=== PATIENT | female | born 1945 | race Caucasian/White ===

== ENCOUNTER → 2016-11-26 | Outpatient (CLI) | payer OTHER, BC ==
[~2016-11-26] VITALS: Ht 154.9 cm; Wt 74.4 kg
[~2016-11-26] MED LIST: AMITRIPTYLINE H10 M1 PO; AMITRIPTYLINE H25 M2 PO; AMOXICILLIN 50500 M1 PO; ATIVAN0.5 MG PO; AUGMENTIN 875875 MG PO; BACTRIM; BENADRYL25 MG PO; BENTYL20 MG PO; CALCIUM 500 +1 EAC5 PO; CALCIUM PO; CIPRO500 MG PO; CRANBERRY400 MG PO; DOLOPHINE HCL10 MG PO; ELAVIL PO; FIBER1 GM PO; FIORICET PO; FISH OIL 1,0001 EAC7 PO; FISHOIL; GEMFIBROZIL 60600 MG PO; HAIR, SKIN & N1 EAC3 PO; HYDROCODON-ACE1 EAC7 PO; HYDROCODONE-AP1 EAC6 PO; IRON325 PO; LIBRAX PO; LIPITOR40 MG PO; METHADONE HCL 110 M1 PO; METHADOSE10 M1 PO; MUCINEX TA600 MG/TA2 PO; MULTIVITAMINS PO; NORCO 5-325 TA1 EACH PO; NORVASC10 MG PO; NULEV0.125 MG PO; OSTEO BI-FLEX1 EAC1 PO; PARAFON FORTE500 MG PO; PREVACID 30MG C30 M1 PO; PREVACID30 MG PO; PROZAC 10 MG CA10 M1 PO; PROZAC 10 MG CA10 MG PO; SIMETHICON CHEW80 M1 PO; SLOW FE 160MG160 MG PO; SUMYCIN 250250 MG PO; VITAMIN D1000 UNI1 PO
--- NOTE | ~2016-11-26 | HPC ---
[facility] [place] [place] [address] [address] PAIN MANAGEMENT CONSULTATION Name: CONSTANTIN TYLER Room #: REG [facility] Kane#: [id number] Admission: 11/26/16 Attend Phys: Tova Villalpando MD Discharge: Date of : 49 Report #: [id number] THIS REPORT FOR: //name// CC: DILEEP Degroot DATE OF SERVICE: 11/26/2016 DATE OF SERVICE: 11/26/2016 FOLLOWUP COMPLAINT: "My pain on the left side still hurts." The medicine continues to be helpful. 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 I had surgery on it, may remove the part of it. They are not sure what the etiology of the cancer is. They cannot remove it all. Otherwise, it will damage my fascial nerve. I am going to have surgery on the December 17 to have some more of this cancer removed. Hopefully, they will have more information on how to treat it. The dentist has placed the number of implants in my mouth. We are not sure how to proceed because if I have to go with radiation that would might be a problem with healing. I have to see what happens. PHYSICAL EXAMINATION: Blood pressure 164/93, pulse 86, respiratory rate 16, room air saturation 97%. The patient has pain and discomfort involving the left side. Status post nephrectomy. IMPRESSION: 1. Chronic left flank pain status post nephrectomy, which responds to opioids. 2. Tooth extractions and dental implants - still in progress over the last which has been going on for the last year. 3. 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 RECOMMENDATIONS: We will continue with the patient's current medical regimen of methadone 10 mg 1 p.o. t.i.d. and hydrocodone 5/325, Elavil 25 mg at bedtime. She will call us if she has any problems with her medications. We would like to thank you for letting us participate in her care. We hope she continues to improve. <ELECTRONICALLY SIGNED> By: Tova Villalpando MD 12/21/16 1018 [id number] Tova Villalpando MD /nt
[2016-11-26 10:09] VITALS: BP 164/93
== END ==
LOC: PAIN 07:06
DX: G89.28 Other chronic postprocedural pain (principal); Z90.5 Acquired absence of kidney; C44.209 Unspecified malignant neoplasm of skin of left ear and external auricular canal; Z77.123 Contact with and (suspected) exposure to radon and other naturally occurring radiation; I10 Essential (primary) hypertension

== ENCOUNTER → 2017-03-02 | Outpatient (CLI) | payer OTHER, BC ==
[~2017-03-02] VITALS: Ht 154.9 cm; Wt 74.2 kg
--- NOTE | ~2017-03-02 | HPC ---
[facility] [place] [address] PAIN MANAGEMENT CONSULTATION Name: CONSTANTIN TYLER [id number] Admission: 03/02/17 Attend Phys: Tova Villalpando MD Discharge: Date of : 47 Report #: [id number] THIS REPORT FOR: //name// CC: Bianca Mcrae MD DATE OF SERVICE: 03/02/2017 FOLLOWUP COMPLAINT: "I had my surgery again." FOLLOWUP HISTORY: The patient is a 71-year-old female who has been seen in the pain clinic because of chronic left flank pain. She finds that her pain continues to be helped with use of her current medical regimen. She also is recovering from surgery. She had surgery on a cancer, which is benign, but continues to reoccur behind her left ear. She states that she will not need radiation. She is planning on continuing with dental implant surgery. PHYSICAL EXAMINATION: Blood pressure 135/72, pulse 90, respiratory rate 18, and room air saturation 96%. The patient's height 5 feet 1 inch, weight 74 kg, BMI is 30. She has not fallen since we saw her last. IMPRESSION: 1. Recent left ear surgery for recurrent tumor formation. 2. Chronic left flank pain, status post nephrectomy continues to respond to opioids. 3. Tooth extraction and dental implants. We will not have to undergo radiation. She is going to pursue completion of her dental implants and dentures. RECOMMENDATIONS: A script for the patient's methadone 1 p.o. t.i.d. and hydrocodone 5/325 with Elavil 25 mg at bedtime has been rewritten. She will call us if she has any problems. We would like to thank you for letting us participate in her care. We hope she continues to improve. By: [id number] Tova Villalpando MD /nt
[2017-03-02 11:07] VITALS: BP 135/72
== END ==
LOC: PAIN 06:57
DX: R10.9 Unspecified abdominal pain (principal); Z90.5 Acquired absence of kidney; I10 Essential (primary) hypertension; F32.9 Major depressive disorder, single episode, unspecified

== ENCOUNTER → 2017-06-03 | Outpatient (CLI) | payer OTHER, BC ==
[~2017-06-03] VITALS: Ht 154.9 cm; Wt 68.2 kg
--- NOTE | ~2017-06-03 | HPC ---
[facility] [place] [address] PAIN MANAGEMENT CONSULTATION Name: CONSTANTIN TYLER Room #: REG PAUL Kane#: [id number] Admission: 06/03/17 Attend Phys: Tova Villalpando MD Discharge: Date of : 47 Report #: [id number] THIS REPORT FOR: //name// CC: Bianca Mcrae MD DATE OF SERVICE: 06/03/2017 FOLLOWUP COMPLAINT: Here for medications. FOLLOWUP HISTORY: The patient is a 71-year-old female who has been followed in the pain clinic. As you recall, she has had surgery in the past. She continues to have flank pain, which is quite problematic. She finds that her current medical regimen of methadone and hydrocodone are quite helpful. She states that she keeps her medications in a guarded area. She would like to continue with her medications. She has had some problems with urinary tract infection. 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 She would like to have her medications renewed. PHYSICAL EXAMINATION: The patient is alert. She appears to be taken the medication as prescribed. There are no obvious complications. She rates her pain as a 3/10 today. She continues to have the pain on the left flank area. This is in the post nephrectomy area. She does feel a little better since the UTIs have been helped, but still that there might still be some residual problems at this juncture. She will continue to follow up with her physician in that regard. Blood pressure 136/75, pulse 83, respiratory rate 16, room air saturation is 98%, height 153 cm, weight 68 kg, and BMI 28. The patient has not fallen since we saw her last. IMPRESSION: 1. Chronic left flank pain, status post nephrectomy, continues to find opioids helpful to enable her to engage in activities of daily living. 2. Tooth extraction and dental surgery on hold secondary to history of urinary tract infections, which the patient feels still might be somewhat lingering. 3. History of left ear surgeries with recurrent tumor. The patient feels that this may be stable and continues to follow with her physician. RECOMMENDATION: She will call us if she has any problems with her medications. Her prescriptions for Elavil, methadone, and hydrocodone are rewritten. By: [id number] Tova Villalpando MD /nt
[2017-06-03 09:43] VITALS: BP 136/75
== END | disposition home or self-care (01) ==
LOC: PAIN 06-01 07:20
DX: R10.9 Unspecified abdominal pain (principal); Z90.5 Acquired absence of kidney; Z98.890 Other specified postprocedural states

== ENCOUNTER 2017-11-29 13:53 | Inpatient (IN) | payer OTHER, BC ==
[~2017-11-29] VITALS: Ht 157.5 cm; Wt 67.1 kg
--- NOTE | ~2017-11-29 | EKG ---
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 : 1945 Requested By: Tori Guerrero Order Number: [id number] MD: Hung Wing Measurements Intervals [place] Rate: 86 P: 48 MO: 159 QRS: 6 QRSD: 87 T: -21 QT: 467 QTc: 559 Interpretive Statements Sinus rhythm RSR' in V1 or V2, probably normal variant Inferior infarct, old Nonspecific ST segment abnormality Compared to ECG 05/02/2015 06:38:[address] segment abnormality is now present Electronically Signed On 11-29-2017 17:39:42 PROCESS PLANNER by Hung Wing [email or web address] <ELECTRONICALLY SIGNED> By: Hung Wing MD, [facility] 11/29/17 1739 1438 1438 Hung Wing MD, [facility] /EPI
--- NOTE | ~2017-11-29 | EKG ---
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: : 1945 Requested By: Peter Acosta Order Number: [id number] MD: Hung Wing Measurements Intervals [place] Rate: 78 P: -5 [place]: 139 QRS: 19 QRSD: 84 T: 20 QT: 370 QTc: 422 Interpretive Statements Sinus rhythm RSR' in V1 or V2, probably normal variant Borderline T abnormalities, diffuse leads Compared to ECG 11/29/2017 14:38:49 No significant change was found Electronically Signed On 12-01-2017 8:07:10 UNDERGROUND DISTRIBUTION ENGINEER by Hung Wing [email or web address] <ELECTRONICALLY SIGNED> By: Hung Wing MD, [facility] 12/01/17 0807 0645 0645 Hung Wing MD, [facility] /EPI
[2017-11-29 13:54] VITALS: BP 156/75
[2017-11-29 14:24] LABS: HEMATOCRIT 32.8 % (37.0-47.0); HEMOGLOBIN 10.5 gm/dL (12.0-15.0); MCH 24.5 pg (26.0-34.0); MCV 76.6 fL (80.0-100.0); PLATELET COUNT 331 thou/uL (150-400); RBC 4.28 mil/uL (4.20-5.00); RDW 16.5 % (10.5-14.5); WBC 17.8 thou/uL (4.0-11.0)
[2017-11-29 14:26] LABS: CALCIUM 10.3 mg/dL (8.5-10.1); CREATININE 1.4 mg/dL (0.6-1.0)
[2017-11-29 14:27] LABS: URINE BLOOD 3+ (Negative); URINE CLARITY CLEAR; URINE COLOR YELLOW; URINE GLUCOSE-RANDOM* NEGATIVE (Negative); URINE KETONES 3+ (Negative); URINE LEUKOCYTES TRACE (Negative); URINE NITRITE NEGATIVE (Negative); URINE PROTEIN (DIPSTICK) 2+ (Negative); URINE UROBILINOGEN 0.2 E.U./dl (0.2-1.0)
[2017-11-29 14:31] LABS: ICTOTEST (BILI CONFIRMATORY) Negative (Negative); URINE BILIRUBIN NEGATIVE (Negative)
[2017-11-29 14:35] LABS: POTASSIUM 2.3 mmol/L (3.5-5.1)
[2017-11-29 14:41] LABS: CASTS None Seen /LPF (None Seen); MUCUS 0-3 Light strn/LPF (None Seen); SQUAMOUS 0-3 Few /LPF (0-3)
[2017-11-29 14:42] LABS: AMORPHOUS URATES Moderate /LPF (None Seen); URINE RBC 3-10 Few /HPF (0-2)
[2017-11-29 15:00] LABS: ABSOLUTE NEUTROPHILS 15.5 thou/uL (1.4-8.2); ANISOCYTOSIS 1+
[2017-11-29 15:01] LABS: MICROCYTES SLIGHT; POLYCHROMASIA SLIGHT
[2017-11-29 15:55] LABS: BE(vivo) -11.6 mmol/L (-2 to +3); HCO3 11.3 mmol/L (22.0-26.0); PO2 96.7 mmHg (80.0-100.0); pH 7.431 (7.360-7.450); sO2 97.7 % (92.0-98.0)
[2017-11-29 15:56] LABS: PCO2 17.4 mmHg (35.0-45.0)
[2017-11-29 16:49] VITALS: BP 156/75
[2017-11-29 18:42] LABS: AMP/METHAMP Negative (Negative); BARBITURATES POSITIVE (Negative); BENZODIAZEPINES Negative (Negative); COCAINE Negative (Negative); METHADONE POSITIVE (Negative); OPIATES POSITIVE (Negative); PCP Negative (Negative)
[2017-11-29 19:08] LABS: TSH 0.19 uIU/mL (0.358-3.740)
[2017-11-29 20:16] VITALS: BP 173/68
[2017-11-29 20:38] VITALS: BP 175/82
[2017-11-29 23:48] VITALS: BP 140/72
[2017-11-30 03:10] VITALS: BP 159/70
[2017-11-30 04:48] LABS: BASOPHILS 0.3 % (0.0-2.0); HEMATOCRIT 27.4 % (37.0-47.0); HEMOGLOBIN 8.9 gm/dL (12.0-15.0); LYMPHOCYTES 6.2 % (24.0-44.0); MCH 24.8 pg (26.0-34.0); MCHC 32.4 g/dL (28.0-37.0); MCV 76.5 fL (80.0-100.0); MONOCYTES 9.5 % (1.0-8.0); PLATELET COUNT 274 thou/uL (150-400); RBC 3.58 mil/uL (4.20-5.00); RDW 16.8 % (10.5-14.5); WBC 15.5 thou/uL (4.0-11.0)
[2017-11-30 05:01] LABS: CALCIUM 9.5 mg/dL (8.5-10.1); CREATININE 1.1 mg/dL (0.6-1.0); MAGNESIUM 1.9 mg/dL (1.8-2.4)
[2017-11-30 05:14] LABS: POTASSIUM 2.6 mmol/L (3.5-5.1)
[2017-11-30 08:42] VITALS: BP 157/65
[2017-11-30 08:43] VITALS: BP 157/65
[2017-11-30] MEDS ORDERED: CHLORZOXAZONE500 MG PO (09:58)
[2017-11-30] MEDS ORDERED: LIBRAX PO (09:59)
[2017-11-30 17:13] VITALS: BP 101/61
[2017-11-30 20:13] VITALS: BP 153/65
[2017-12-01 03:19] VITALS: BP 130/83
[2017-12-01 03:57] LABS: HEMATOCRIT 25.2 % (37.0-47.0); HEMOGLOBIN 8.5 gm/dL (12.0-15.0); MCH 25.3 pg (26.0-34.0); MCHC 33.7 g/dL (28.0-37.0); MCV 75.1 fL (80.0-100.0); RBC 3.35 mil/uL (4.20-5.00); RDW 16.4 % (10.5-14.5); WBC 8.9 thou/uL (4.0-11.0)
[2017-12-01 04:11] LABS: CALCIUM 8.6 mg/dL (8.5-10.1); CREATININE 0.8 mg/dL (0.6-1.0)
[2017-12-01 04:23] LABS: POTASSIUM 2.7 mmol/L (3.5-5.1)
[2017-12-01 04:47] VITALS: BP 170/79
[2017-12-01 08:34] VITALS: BP 183/76
[2017-12-01 11:39] LABS: ALBUMIN 2.4 g/dL (3.4-5.0); CALCIUM 8.9 mg/dL (8.5-10.1); POTASSIUM 3.2 mmol/L (3.5-5.1); TOTAL BILIRUBIN 0.1 mg/dL (<0.1-1.0); TOTAL PROTEIN 6.6 g/dL (6.4-8.2)
[2017-12-01 16:34] VITALS: BP 165/81
[2017-12-01 19:27] VITALS: BP 159/77
[2017-12-02] VITALS (7 sets, daily range): BP systolic 144–183; BP diastolic 64–87
[2017-12-02 07:13] LABS: HEMATOCRIT 25.9 % (37.0-47.0); HEMOGLOBIN 8.7 gm/dL (12.0-15.0); MCH 25.3 pg (26.0-34.0); MCHC 33.4 g/dL (28.0-37.0); MCV 75.5 fL (80.0-100.0); RBC 3.43 mil/uL (4.20-5.00); RDW 16.7 % (10.5-14.5); WBC 8.8 thou/uL (4.0-11.0)
[2017-12-02 07:21] LABS: CALCIUM 8.7 mg/dL (8.5-10.1); CREATININE 0.7 mg/dL (0.6-1.0); POTASSIUM 3.5 mmol/L (3.5-5.1)
[2017-12-03 03:25] VITALS: BP 144/52
[2017-12-03 03:52] LABS: HEMATOCRIT 26.1 % (37.0-47.0); HEMOGLOBIN 8.4 gm/dL (12.0-15.0); MCH 24.4 pg (26.0-34.0); MCHC 32.1 g/dL (28.0-37.0); MCV 76.1 fL (80.0-100.0); RBC 3.43 mil/uL (4.20-5.00); RDW 16.6 % (10.5-14.5); WBC 11.8 thou/uL (4.0-11.0)
[2017-12-03 03:56] LABS: CALCIUM 8.5 mg/dL (8.5-10.1); CREATININE 0.8 mg/dL (0.6-1.0)
[2017-12-03 04:01] LABS: POTASSIUM 2.7 mmol/L (3.5-5.1)
[2017-12-03 08:00] VITALS: BP 155/65
[2017-12-03 17:31] VITALS: BP 146/66
[2017-12-03 19:31] VITALS: BP 171/82
[2017-12-04 00:29] LABS: MAGNESIUM 1.9 mg/dL (1.8-2.4); POTASSIUM 3.2 mmol/L (3.5-5.1)
[2017-12-04 04:56] VITALS: BP 176/78
[2017-12-04 05:47] VITALS: BP 151/69
[2017-12-04 07:14] LABS: CALCIUM 8.8 mg/dL (8.5-10.1); CREATININE 0.7 mg/dL (0.6-1.0); POTASSIUM 3.7 mmol/L (3.5-5.1)
[2017-12-04 08:23] VITALS: BP 167/63
[2017-12-04] MEDS ORDERED: LISINOPRIL10 MG PO (15:08)
[2017-12-04] MEDS ORDERED: KEFLEX500 M1 PO (15:09)
[2017-12-04 15:46] VITALS: BP 152/67
[2017-12-04 15:59] VITALS: BP 152/62
[2018-05-05] MEDS ORDERED: LISINOPRIL10 MG PO (13:49)
[2018-05-05] MEDS ORDERED: CALCIUM 500 +1 EAC5 PO (13:50)
[2018-05-05] MEDS ORDERED: AMOXICILLIN 50500 M1 PO (13:52)
== END 2017-12-04 17:13 | disposition home health service (06) | DRG 871 ==
LOC: ER 13:53 → 4S 14:52 → EROBS 14:52 → 4S 20:23 → 4N 12-04 05:21
PROVIDERS: Emergency Medicine; Hospitalist; Internal Medicine; Nurse Practitioner; Nurse Practitioner Family
DX: A41.9 Sepsis, unspecified organism (principal); G92 Toxic encephalopathy; N17.9 Acute kidney failure, unspecified; N39.0 Urinary tract infection, site not specified; Z66 Do not resuscitate; I10 Essential (primary) hypertension; E78.00 Pure hypercholesterolemia, unspecified; K21.9 Gastro-esophageal reflux disease without esophagitis; E87.6 Hypokalemia; G89.29 Other chronic pain; Z80.9 Family history of malignant neoplasm, unspecified; E78.5 Hyperlipidemia, unspecified; B96.1 Klebsiella pneumoniae [K. pneumoniae] as the cause of diseases classified elsewhere; T40.605A Adverse effect of unspecified narcotics, initial encounter; Y92.89 Other specified places as the place of occurrence of the external cause; Z79.899 Other long term (current) drug therapy; Z88.8 Allergy status to other drugs, medicaments and biological substances; Z90.710 Acquired absence of both cervix and uterus; Z90.49 Acquired absence of other specified parts of digestive tract; Z82.49 Family history of ischemic heart disease and other diseases of the circulatory system; Z85.3 Personal history of malignant neoplasm of breast; Z28.21 Immunization not carried out because of patient refusal
CPT/HCPCS: 10100

== ENCOUNTER 2018-01-22 15:44 | Inpatient (IN) | payer OTHER, BC ==
[~2018-01-22] VITALS: Ht 154.9 cm; Wt 65.8 kg
[~2018-01-22 15:44] MED LIST changes: +CHLORZOXAZONE500 MG PO; +KEFLEX500 M1 PO; +LISINOPRIL10 MG PO
[2018-01-22 15:45] VITALS: BP 143/108
[2018-01-22 16:26] LABS: ABSOLUTE NEUTROPHILS 8.7 thou/uL (1.4-8.2); EOSINOPHILS 0.2 % (0.0-3.0); HEMOGLOBIN 8.5 gm/dL (12.0-15.0); LYMPHOCYTES 11.2 % (24.0-44.0); MCH 23.1 pg (26.0-34.0); MCHC 31.5 g/dL (28.0-37.0); MCV 73.4 fL (80.0-100.0); MONOCYTES 4.9 % (1.0-8.0); PLATELET COUNT 375 thou/uL (150-400); POLYS 82.7 % (36.0-66.0); RBC 3.67 mil/uL (4.20-5.00); RDW 17.9 % (10.5-14.5); WBC 10.5 thou/uL (4.0-11.0)
[2018-01-22 16:39] LABS: CALCIUM 9.4 mg/dL (8.5-10.1)
[2018-01-22 16:45] LABS: ALBUMIN 3.6 g/dL (3.4-5.0); TOTAL BILIRUBIN 0.2 mg/dL (<0.1-1.0); TOTAL PROTEIN 7.1 g/dL (6.4-8.2)
[2018-01-22 16:50] LABS: ANISOCYTOSIS 1+; HYPOCHROMASIA 1+; MICROCYTES 1+
[2018-01-22 17:05] LABS: URINE BILIRUBIN NEGATIVE (Negative); URINE BLOOD NEGATIVE (Negative); URINE CLARITY CLEAR; URINE COLOR YELLOW; URINE GLUCOSE-RANDOM* NEGATIVE (Negative); URINE KETONES NEGATIVE (Negative); URINE LEUKOCYTES-REFLEX NEGATIVE (Negative); URINE NITRITE-REFLEX NEGATIVE (Negative); URINE PROTEIN (DIPSTICK) NEGATIVE (Negative); URINE SPECIFIC GRAVITY 1.015 (1.005-1.035); URINE UROBILINOGEN 0.2 E.U./dl (0.2-1.0)
[2018-01-22] MEDS ORDERED: AMITRIPTYLINE H25 M2 PO (18:10)
[2018-01-22 18:17] VITALS: BP 111/59
[2018-01-22 18:54] VITALS: BP 146/71
[2018-01-22 19:38] VITALS: BP 123/89
[2018-01-22 20:00] LABS: HEMATOCRIT 26.8 % (37.0-47.0); HEMOGLOBIN 8.3 gm/dL (12.0-15.0)
[2018-01-23] VITALS (7 sets, daily range): BP systolic 126–171; BP diastolic 62–81
[2018-01-23 00:33] LABS: HEMATOCRIT 26.5 % (37.0-47.0); HEMOGLOBIN 8.3 gm/dL (12.0-15.0)
[2018-01-23 07:25] LABS: HEMATOCRIT 22.6 % (37.0-47.0); HEMOGLOBIN 7.1 gm/dL (12.0-15.0); MCH 22.9 pg (26.0-34.0); MCHC 31.3 g/dL (28.0-37.0); MCV 73.3 fL (80.0-100.0); RBC 3.08 mil/uL (4.20-5.00); RDW 18.2 % (10.5-14.5); WBC 10.6 thou/uL (4.0-11.0)
[2018-01-23 07:33] LABS: CALCIUM 8.6 mg/dL (8.5-10.1); CREATININE 0.9 mg/dL (0.6-1.0); POTASSIUM 3.6 mmol/L (3.5-5.1)
[2018-01-23 13:07] LABS: HEMOGLOBIN 6.8 gm/dL (12.0-15.0)
[2018-01-23 13:09] LABS: HEMATOCRIT 21.6 % (37.0-47.0)
[2018-01-23 20:19] LABS: HEMATOCRIT 27.7 % (37.0-47.0); HEMOGLOBIN 8.7 gm/dL (12.0-15.0)
[2018-01-24 01:24] LABS: HEMATOCRIT 24.8 % (37.0-47.0)
[2018-01-24 03:18] VITALS: BP 163/73
[2018-01-24 07:10] LABS: HEMATOCRIT 23.4 % (37.0-47.0); HEMOGLOBIN 7.6 gm/dL (12.0-15.0)
[2018-01-24 08:00] VITALS: BP 157/57
[2018-01-24 13:34] LABS: HEMATOCRIT 24.6 % (37.0-47.0); HEMOGLOBIN 8.1 gm/dL (12.0-15.0)
[2018-01-24 16:00] VITALS: BP 136/67
[2018-01-24 18:41] LABS: HEMATOCRIT 24.6 % (37.0-47.0); HEMOGLOBIN 7.8 gm/dL (12.0-15.0)
[2018-01-24 20:22] VITALS: BP 155/79
[2018-01-25 00:26] LABS: HEMATOCRIT 23.3 % (37.0-47.0); HEMOGLOBIN 7.4 gm/dL (12.0-15.0)
[2018-01-25 03:31] VITALS: BP 144/71
[2018-01-25 08:00] VITALS: BP 158/74
[2018-01-25 11:44] VITALS: BP 146/92; BP 148/72
[2018-01-25 15:49] VITALS: BP 148/72
[2018-01-25 17:21] LABS: HEMATOCRIT 29.6 % (37.0-47.0)
[2018-01-25 17:22] LABS: HEMOGLOBIN 9.6 gm/dL (12.0-15.0)
[2018-01-25 19:08] VITALS: BP 142/60
[2018-01-26 03:55] VITALS: BP 159/86
[2018-01-26 05:52] LABS: HEMATOCRIT 27.8 % (37.0-47.0); HEMOGLOBIN 9.2 gm/dL (12.0-15.0); MCH 25.5 pg (26.0-34.0); MCV 77.2 fL (80.0-100.0); RBC 3.59 mil/uL (4.20-5.00); RDW 19.1 % (10.5-14.5); WBC 7.4 thou/uL (4.0-11.0)
[2018-01-26 08:30] VITALS: BP 172/79
[2018-01-26] MEDS ORDERED: CARAFATE 11 GM/10 M1 PO (09:50)
[2018-01-26 16:14] VITALS: BP 151/67
[2018-01-26 21:41] VITALS: BP 156/86
[2018-01-27 03:45] VITALS: BP 155/77
[2018-01-27 05:32] LABS: % SATURATION 7 % (20-39); IRON 27 ug/dL (50-170); TIBC 392 ug/dL (250-450)
[2018-01-27 05:33] LABS: HEMATOCRIT 29.8 % (37.0-47.0); HEMOGLOBIN 9.8 gm/dL (12.0-15.0); MCH 25.5 pg (26.0-34.0); MCHC 32.8 g/dL (28.0-37.0); MCV 77.7 fL (80.0-100.0); RBC 3.83 mil/uL (4.20-5.00); RDW 20.3 % (10.5-14.5); WBC 6.7 thou/uL (4.0-11.0)
[2018-01-27 08:38] VITALS: BP 155/70
[2018-01-27 09:00] VITALS: BP 155/70
[2018-01-27] MEDS ORDERED: ATIVAN0.5 MG PO (10:54)
[2018-01-27] MEDS ORDERED: HYDROCODONE-AP1 EAC6 PO (10:54)
[2018-05-05] MEDS ORDERED: LISINOPRIL10 MG PO (13:49)
[2018-05-05] MEDS ORDERED: CALCIUM 500 +1 EAC5 PO (13:50)
[2018-05-05] MEDS ORDERED: AMOXICILLIN 50500 M1 PO (13:52)
== END 2018-01-27 11:55 | DRG 380 ==
LOC: ER 15:44 → 4S 17:09 → EROBS 17:09 → 4S 18:55
PROVIDERS: Hospitalist; Internal Medicine Gastroenterology; Nurse Practitioner; Physician Assistant
PROC: 0DJ08ZZ Inspection of Upper Intestinal Tract, Via Natural or Artificial Opening Endoscopic (ICD-10-PCS; principal; 2018-01-23)
PROC: 30233N1 Transfusion of Nonautologous Red Blood Cells into Peripheral Vein, Percutaneous Approach (ICD-10-PCS; 2018-01-25)
DX: K22.11 Ulcer of esophagus with bleeding (principal); E43 Unspecified severe protein-calorie malnutrition; D62 Acute posthemorrhagic anemia; I10 Essential (primary) hypertension; E78.00 Pure hypercholesterolemia, unspecified; K21.9 Gastro-esophageal reflux disease without esophagitis; K25.4 Chronic or unspecified gastric ulcer with hemorrhage; F41.9 Anxiety disorder, unspecified; Z79.899 Other long term (current) drug therapy; Z80.9 Family history of malignant neoplasm, unspecified; Z90.49 Acquired absence of other specified parts of digestive tract; Z90.710 Acquired absence of both cervix and uterus; Z68.27 Body mass index [BMI] 27.0-27.9, adult; Z85.3 Personal history of malignant neoplasm of breast; Z88.8 Allergy status to other drugs, medicaments and biological substances; Z82.49 Family history of ischemic heart disease and other diseases of the circulatory system
CPT/HCPCS: 10100; 62110; 62900; 70005

== ENCOUNTER → 2018-05-10 | Outpatient (CLI) | payer OTHER, BC ==
[~2018-05-10] VITALS: Ht 152.4 cm; Wt 65.8 kg
[~2018-05-10] MED LIST changes: +CARAFATE 11 GM/10 M1 PO
--- NOTE | ~2018-05-10 | P ---
[facility] [place] [address] [place] [address] PROCEDURE REPORT Name: NAYELICONSTANTIN [facility] #: [facility] [id number] Admission: 05/10/18 Attend Phys: Luis Peña Discharge: Date of : 47 Report #: [id number] THIS REPORT FOR: //name// CC: Luis Degroot DATE OF SERVICE: 05/10/2018 PROCEDURE PERFORMED: Upper endoscopy with esophageal dilation. HISTORY OF PRESENT ILLNESS: The patient is a 72-year-old female who had an upper GI bleed and anemia in January of this year. She underwent an upper endoscopy by my partner, Dr. Bianca Abrams on 01/23/2018 which showed gastric ulcers and distal esophagus being ulcerated. The patient is currently taking Prevacid 30 mg on a p.r.n. basis, but also on Carafate. She does report some mild dysphagia. Plan is for upper endoscopy. DESCRIPTION OF PROCEDURE: The risks and benefits of the procedure were explained to the patient, those risks including but not limited to bleeding, perforation and the risk of sedation. She understood these risks and gave informed consent. Sedation was given using propofol and ketamine per anesthesia. Next, using a standard Olympus upper endoscope, the scope was placed in the patient's mouth and advanced under direct vision through the esophagus, stomach and into the second portion of the duodenum. The larynx was normal in appearance. The esophagus was normal throughout. The GE junction was normal. No evidence of esophagitis. Upon entering the stomach, a large hiatal hernia was noted. Overall, the gastric mucosa was normal. No evidence of ulcerations or erosions. The pylorus was normal and patent. The duodenal bulb, first and second portion were all normal. The scope was then brought back up into the patient's stomach and a Savary guidewire was inserted through the scope, leaving the guidewire in place as the scope was then withdrawn. Next, a 48-Chinese Savary dilation of the esophagus was then performed without difficulty. The wire and the dilator were removed. The scope was reintroduced into the patient's stomach. There was no evidence of mucosal tear after dilation. The scope was then withdrawn and the procedure terminated. The patient tolerated the procedure well. IMPRESSION: 1. Large hiatal hernia. 2. Status post esophageal dilation. RECOMMENDATIONS: 1. Continue current medicine regimen. 2. Observe the patient post-dilation. [address] [address] PROCEDURE REPORT Name: CONSTANTIN TYLER Room #: REG [facility]#: [id number] Admission: 05/10/18 Attend Phys: Luis Peña Discharge: Date of : 47 Report #: [id number] Thank you for allowing me to participate in her care. <ELECTRONICALLY SIGNED> By: Luis Arteaga MD 05/12/18 1020 1038 1546 Luis Arteaga MD /pato
== END | disposition home or self-care (01) ==
LOC: GI 08:28
DX: K44.9 Diaphragmatic hernia without obstruction or gangrene (principal); I10 Essential (primary) hypertension; E78.00 Pure hypercholesterolemia, unspecified; K21.9 Gastro-esophageal reflux disease without esophagitis; Z85.3 Personal history of malignant neoplasm of breast; F32.9 Major depressive disorder, single episode, unspecified; F41.9 Anxiety disorder, unspecified; Z85.22 Personal history of malignant neoplasm of nasal cavities, middle ear, and accessory sinuses; Z87.19 Personal history of other diseases of the digestive system; Z98.890 Other specified postprocedural states; Z90.710 Acquired absence of both cervix and uterus; Z90.5 Acquired absence of kidney; Z79.899 Other long term (current) drug therapy; Z88.8 Allergy status to other drugs, medicaments and biological substances
CPT/HCPCS: 62110; 62900

== ENCOUNTER → 2019-05-09 | Outpatient (CLI) | payer OTHER, BC ==
[~2019-05-09] VITALS: Ht 152.4 cm; Wt 65.8 kg
[~2019-05-09] MED LIST changes: +DIPHENHIST50 MG PO; +IMODIUM A-D2 M1 PO; +METHADONE HCL5 MG PO; +SLOW FE142 MG PO
[2019-05-09 10:28] VITALS: BP 119/75
--- NOTE | 2019-05-09 10:57 | NUR ---
Pain Clinic Assessment: 1. History of Osteoarthritis: Not Applicable History of Rheumatoid Arthritis: Not Applicable 2. Height: 5 ft. 0 in. 152.4 cm. Weight: 145.0 lb. oz. 65.772 kg. Patient's BMI: 28.3 3. Vital Signs: BP: 119/75 Pulse: 78 Resp: 16 Temp: 02 Sat: 97 ECG Mon: 4. Pain Intensity: 8 5. Fall Risk: Dizziness: Y Needs help standing or walking: N Fallen in the last 3 months: N Fall risk comments: 6. Patient on Blood Thinner: None 7. History of Hypertension: Y 8. Opioid Therapy greater than 6 weeks: Y Opiate Contract Signed: 05/21/16 9. Risk Assessment Tool Provided: LOW RISK 11/16 10. Functional Assessment Tool: 11. Recreational Drug Use: Never Drug Type: Tobacco Use: Never Smoker Tobacco Type: Amount or Packs/day: How Many Years: Alcohol Use: No Frequency: Quant:
--- NOTE | 2019-05-11 07:25 | HPC ---
[facility] [address] [place] [address] PAIN MANAGEMENT CONSULTATION Name: CONSTANTIN TYLER Room #: REG PAUL [place]#: [id number] Admission: 05/09/19 ������������������ Attend Phys: Fang Graham Discharge: ������������������ Date of : 47 Report #: [id number] THIS REPORT FOR: //name// CC: Fang Degroot DATE OF SERVICE: 05/09/2019 CHIEF COMPLAINT: Left chronic pain in her left flank. HISTORY OF PRESENT ILLNESS: This is a 73-year-old female who returns to the pain clinic today for refill of her methadone that she used to take from Dr. Rc Villalpando. She has been seeing Dr. Degroot for the past year and a half for her pain management and had been taking hydrocodone. She is feeling that this is not effective in controlling her pain and would like to restart her methadone. The patient's pain score today is an 8/10. She tells me that it is mostly in her left flank area along her nephrectomy scar. It is an achy, intermittent and constant at times pain. This is exacerbated by tight clothing, touching and eating too much or activity. Medications are somewhat helpful as well as heat and rest. The patient has had numerous hospitalizations since we have last seen her last. She tells me she is still having dental work performed and needs to continue that as well. She has lost significant weight since we had seen her last. I believe this may be due to her dental problems that she continues to experience. ALLERGIES: DEMEROL. CURRENT LIST OF MEDICATIONS: Imodium, Benadryl, iron, chlorzoxazone, Os-Benitez, lisinopril 10 mg, hydrocodone 5/325 three times a day, Ativan 0.5 mg p.r.n., Prevacid, Prozac, Fioricet, Lipitor, gemfibrozil and amlodipine. PQRS: 1. The patient denies history of osteoarthritis or rheumatoid arthritis. 2. Height is 5 feet and weight is 145. BMI is 28. Vital signs 119/75, pulse is 78, respirations 16 and oxygen sat is 97. Pain score is 8/10. 3. Fall risk, complains of slight dizziness, does not need help walking or standing. She has not fallen in the last 3 months. 4. The patient is not on any blood thinners. She does take medicine for hypertension. She has been on opioid therapy greater than 6 weeks. We will re-sign an opioid signed contract today. Her risk assessment tool is low. Her functional assessment is 32/70 5. Recreational drug use, she denies. She is not a smoker and does not drink alcohol. We did check the prescription monitoring system. The patient has been filling appropriately from Dr. Degroot for her medications. PHYSICAL EXAMINATION: [address] [address] PAIN MANAGEMENT CONSULTATION Name: CONSTANTIN TYLER [facility]: [facility] [id number] Admission: 05/09/19 ������������������ Attend Phys: Fang Graham Discharge: ������������������ Date of : 47 Report #: [id number] GENERAL: This is an alert and orientated patient. She appears her stated age, placing her pain score today at 8/10. She is a good historian. HEENT: Normocephalic and atraumatic. Extraocular eye muscles are intact. She does have dental implants in place in the top and is still in the process of her lower implants. NECK: Without adenopathy or JVD. ABDOMEN: Soft and nontender. Does complain of some left flank pain and tenderness at the incision site from her nephrectomy. MUSCULOSKELETAL: The patient walks with a slightly antalgic gait. Her lower extremity strength is judged to be 5/5 in all major muscle groups. IMPRESSION: 1. Chronic left flank pain, status post nephrectomy. 2. Teeth extraction and dental surgery, ongoing. 3. Complex medical management under terms of written opioid agreement We reviewed the fact that opiate medications are being used to provide analgesia adequate to support activities of daily living, not attempting to achieve a specific pain score on the 0-10 Visual Analog Scale. The current opiate medications are providing sufficient analgesia to allow the patient to participate in activities of daily living. The patient is not exhibiting any aberrant behavior suggestive of drug diversion. The patient is not having any adverse reactions to medications. The patient is not suffering from daytime somnolence or mental acuity changes. The patient is managing opiate-induced constipation with appropriate [id number] agents and dietary considerations. The patient was counseled on concern for caution with operating a motor vehicle while using opiate medications. A physical exam was performed and the patient's functional status was evaluated. All patients with back pain were advised against the bed rest greater than 4 days and were advised to return to normal activities. Pain score assessment was noted and the treatment plan was reviewed with the patient. All current medications, both prescribed and OTC were reviewed and reconciled on the electronic medical record. Tobacco screening was accomplished and smoking cessation was advised when indicated. BMI was noted and diet/exercise modification was recommended for all patients following outside normal parameters. I reviewed with the patient today their responsibilities to safeguard prescription medications, reviewed their responsibility to utilize medications only as prescribed by the physician. They are to seek and receive pain medications only from 1 physician group ( [facility]). They are to use 1 pharmacy and keep the clinic informed if they change pharmacies. Their responsibilities include making followup visits in a timely fashion and to avoid abrupt discontinuation of medication usage. Their responsibilities further include bringing their medications (bottles from the pharmacy with residual [facility] [address] [place] [address] PAIN MANAGEMENT CONSULTATION Name: CONSTANTIN TYLER Terri Room #: REG [facility].[place].#: [id number] Admission: 05/09/19 ������������������ Attend Phys: Fang Graham Discharge: ������������������ Date of : 49 Report #: [id number] pills) to the visit for possible confirmation of pill counts and the patient understands it is their responsibility to submit to random drug screens to ensure both that the medications prescribed are present, and that no other controlled substances are present. All prescriptions provided today were generated electronically. PLAN: 1. We discussed treatment options with the patient today. The patient wishes to return to methadone treatment. She has been on hydrocodone through Dr. Degroot for several months. I did explain the new CDC guidelines to her and the conversion factor from her hydrocodone, which is 20 morphine milligram equivalents to methadone, we would place her on 5 mg of methadone twice a day that would place her at 40 morphine milligram equivalents which is essentially doubling her hydrocodone dose. I explained to her that she would not have any breakthrough pain medicines that it is a long-acting medication so therefore we would just give her it twice a day. The patient is agreeable with this plan of care. I explained to her about the lowest most effective dose and I believe by increasing her medication and returning her to methadone that this will decrease her nerve pain that she is experiencing along her scar line that she found the methadone was very beneficial in controlling in the past. 3. The patient will follow up with us in 2 months' time. She did re-sign her contract with us today and tells us that she will no longer be taking hydrocodone from Dr. Degroot. 4. Dr. Villalpando did see the patient as well today in collaborated care. ��������������������������������������������� <ELECTRONICALLY SIGNED> ���������������������������������������� By: Fang Graham ��������������������������������������������� 05/11/19 0725 1317 2303 Fang Graham /pato
== END ==
LOC: PAIN 06:52
DX: Z76.0 Encounter for issue of repeat prescription (principal); R10.9 Unspecified abdominal pain; G89.29 Other chronic pain; Z79.899 Other long term (current) drug therapy; Z90.5 Acquired absence of kidney; Z79.891 Long term (current) use of opiate analgesic

== ENCOUNTER → 2019-07-04 | Outpatient (CLI) | payer OTHER, BC ==
[~2019-07-04] VITALS: Ht 152.4 cm; Wt 67.8 kg
--- NOTE | ~2019-07-04 | HPC ---
[facility] [address] [place] [address] PAIN MANAGEMENT CONSULTATION Name: CONSTANTIN TYLER Room #: REG PAUL Lewis.#: [id number] Admission: 07/04/19 Attend Phys: Fang Graham Discharge: Date of : 49 Report #: [id number] THIS REPORT FOR: //name// CC: Fang Graham Edy [facility] DATE OF SERVICE: 07/04/2019 CHIEF COMPLAINT: Left chronic pain in her left flank as well as mouth pain. HISTORY OF PRESENT ILLNESS: This is a 73-year-old female who returns to the pain clinic today for refill of her methadone that she uses to help treat her ongoing left flank pain from a previous nephrectomy and also ongoing oral pain. She has many dental issues and is going to have dental implants removed on Tuesday. The patient reports a pain score of 0/10 today. Her pain is an achy feeling, worse with bending.. The medications are very beneficial in controlling ____. The patient tells me she does not have problems with constipation or daytime sleepiness. ALLERGIES: DEMEROL. CURRENT LIST OF MEDICATIONS: Methadone 5 mg b.i.d., iron, chlorzoxazone 500 mg p.r.n., Os-Benitez, Zestril, Prevacid, Prozac, Fioricet, Lipitor, gemfibrozil and Norvasc. PQRS: 1. The patient denies a history of osteoarthritis or rheumatoid arthritis. Her height is 5 feet, weight is 149, BMI is 29. 2. Vital signs 113/70, pulse is 75, respirations 14, oxygen sat is 96. 3. Pain score is 0/10. 4. Denies dizziness, does not need help walking or standing, has not fallen in the last 3 months. 5. The patient is not on any blood thinners. She does have medicine for hypertension. 6. Opiate therapy is greater than 6 weeks; therefore, an opioid signed contract is on the chart. Her risk assessment tool is low. Functional assessment is 32/70. 7. Recreational drug use, she denies. She is not a smoker and does not drink alcohol. We were unable to locate a prescription monitoring system, but per [employer], she is filling appropriately for her medications. PHYSICAL EXAMINATION: GENERAL: This is alert and orientated 73-year-old that appears slightly older than her stated age, placing her current pain score at 0/10. She is a good [facility] [address] [place] [address] PAIN MANAGEMENT CONSULTATION Name: NAYLEICONSTNATIN [id number] Admission: 07/04/19 Attend Phys: Fang Graham Discharge: Date of : 47 Report #: [id number] historian. HEENT: Normocephalic, atraumatic. Extraocular eye muscles are intact. She does have dental implants in place in the top and still is in the process of her lower implants. Does complain of mouth pain today. NECK: Without adenopathy or JVD. ABDOMEN: Soft and nontender. She has left flank pain area and tenderness at the incision site from her nephrectomy. MUSCULOSKELETAL: The patient walks with a slightly antalgic gait. Her lower extremity strength judged to be 5/5 in all major muscle groups. IMPRESSION: 1. Chronic left flank pain status post nephrectomy. 2. Teeth extraction and dental surgery, ongoing. 3. Complex medical management under terms of written opioid agreement. We reviewed the fact that opiate medications are being used to provide analgesia adequate to support activities of daily living, not attempting to achieve a specific pain score on the 0-10 Visual Analog Scale. The current opiate medications are providing sufficient analgesia to allow the patient to participate in activities of daily living. The patient is not exhibiting any aberrant behavior suggestive of drug diversion. The patient is not having any adverse reactions to medications. The patient is not suffering from daytime somnolence or mental acuity changes. The patient is managing opiate-induced constipation with appropriate cqwe-hsi-sindkwt agents and dietary considerations. The patient was counseled on concern for caution with operating a motor vehicle while using opiate medications. A physical exam was performed and the patient's functional status was evaluated. All patients with back pain were advised against the bed rest greater than 4 days and were advised to return to normal activities. Pain score assessment was noted and the treatment plan was reviewed with the patient. All current medications, both prescribed and OTC were reviewed and reconciled on the electronic medical record. Tobacco screening was accomplished and smoking cessation was advised when indicated. BMI was noted and diet/exercise modification was recommended for all patients following outside normal parameters. I reviewed with the patient today their responsibilities to safeguard prescription medications, reviewed their responsibility to utilize medications only as prescribed by the physician. They are to seek and receive pain medications only from 1 physician group ( [facility]). They are to use 1 pharmacy and keep the clinic informed if they change pharmacies. Their responsibilities include making followup visits in a timely fashion and to avoid abrupt discontinuation of medication usage. Their responsibilities further include bringing their medications (bottles from the pharmacy with residual pills) to the visit for possible confirmation of pill counts and the patient understands it is their responsibility to submit to random drug screens to ensure both that the medications prescribed are present, and that no other [address] [address] PAIN MANAGEMENT CONSULTATION Name: CONSTANTIN TYLER Room #: REG [facility]#: [id number] Admission: 07/04/19 Attend Phys: Fang Graham Discharge: Date of : 47 Report #: [id number] controlled substances are present. All prescriptions provided today were generated electronically. PLAN: 1. We discussed treatment options with the patient today. The patient is going to have, hopefully, the final process of her dental implants on Tuesday. We know that this will have an increase in her pain. The patient was instructed to have the surgeon write for her breakthrough pain medicines and to call our office with a script that they give her. She is instructed to continue her methadone as directed. The patient verbalizes understanding. 2. Scripts given for methadone 5 mg b.i.d., #60, for today and 4-week release. The patient finds this very beneficial in controlling her pain and rating it at 0 today. The patient's current MME is at 40, which is below the CDC guidelines. 3. The patient will follow up in 2 months' time period and call if any problems occur. The patient seen in collaboration with Dr. Ousmane Villalpando. By: [id number] Fang Graham /nt
[2019-07-04 11:06] VITALS: BP 113/70
--- NOTE | 2019-07-04 11:24 | NUR ---
Pain Clinic Assessment: 1. History of Osteoarthritis: Not Applicable History of Rheumatoid Arthritis: Not Applicable 2. Height: 5 ft. 0 in. 152.4 cm. Weight: 149.4 lb. oz. 67.767 kg. Patient's BMI: 29.2 3. Vital Signs: BP: 113/70 Pulse: 75 Resp: 14 Temp: 02 Sat: 96 ECG Mon: 4. Pain Intensity: 0 5. Fall Risk: Dizziness: N Needs help standing or walking: N Fallen in the last 3 months: N Fall risk comments: 6. Patient on Blood Thinner: None 7. History of Hypertension: Y 8. Opioid Therapy greater than 6 weeks: Y Opiate Contract Signed: 05/09/19 9. Risk Assessment Tool Provided: LOW RISK 11/16 10. Functional Assessment Tool: 11. Recreational Drug Use: Never Drug Type: Tobacco Use: Never Smoker Tobacco Type: Amount or Packs/day: How Many Years: Alcohol Use: No Frequency: Quant:
== END ==
LOC: PAIN 06:47
DX: R10.9 Unspecified abdominal pain (principal); G89.29 Other chronic pain; Z79.891 Long term (current) use of opiate analgesic

== ENCOUNTER → 2019-09-19 | Outpatient (CLI) | payer OTHER, BC ==
[~2019-09-19] VITALS: Ht 152.4 cm; Wt 62.6 kg
[2019-09-19 12:36] VITALS: BP 138/77
--- NOTE | 2019-09-19 12:44 | NUR ---
Pain Clinic Assessment: 1. History of Osteoarthritis: DENIES History of Rheumatoid Arthritis: DENIES 2. Height: 5 ft. 0 in. 152.4 cm. Weight: 138.0 lb. oz. 62.596 kg. Patient's BMI: 27.0 3. Vital Signs: BP: 138/77 Pulse: 82 Resp: 16 Temp: 02 Sat: 95 ECG Mon: 4. Pain Intensity: 0 5. Fall Risk: Dizziness: N Needs help standing or walking: N Fallen in the last 3 months: N Fall risk comments: 6. Patient on Blood Thinner: None 7. History of Hypertension: Y 8. Opioid Therapy greater than 6 weeks: Y Opiate Contract Signed: 05/09/19 9. Risk Assessment Tool Provided: LOW RISK 11/16 10. Functional Assessment Tool: 11. Recreational Drug Use: Never Drug Type: Tobacco Use: Never Smoker Tobacco Type: Amount or Packs/day: How Many Years: Alcohol Use: No Frequency: Quant:
--- NOTE | 2019-09-20 15:41 | HPC ---
[facility] [address] [place] [address] PAIN MANAGEMENT CONSULTATION Name: CONSTANTIN TYLER Room #: REG [facility] Kane#: [id number] Admission: 09/19/19 Attend Phys: Fang Graham Discharge: Date of : 47 Report #: [id number] THIS REPORT FOR: //name// CC: Fang Degroot MD DATE OF SERVICE: 09/19/2019 CHIEF COMPLAINT: Left chronic flank pain and mouth pain. HISTORY OF PRESENT ILLNESS: This is a 73-year-old female who returns to the pain clinic today for a refill of her medications that she uses to help treat her ongoing left flank pain as a result of nephrectomy. She is also having ongoing oral pain as a result of dental work. Today, the patient is reporting a pain score of 0-2. She has had her dental implants removed and had dentures placed on her lower jaw line since we last saw her. She reports that they are wanting to do bone reconstruction on her upper mouth and replace all of those as well, but at this time, she is not willing to have those done. She now has upper and lower teeth and is going to get by with what she has. She reports it was very painful at first and she has lost 10 pounds since we last saw her, but she feels that she is finally getting better. She finds the methadone very beneficial in controlling her pain. She has been able to decrease it slightly since we saw her last in June. She denies any problems with daytime sleepiness from this medication. She does have ongoing GI issues with diarrhea alternating with constipation that she has suffered with for several years. ALLERGIES: DEMEROL. CURRENT LIST OF MEDICATIONS: Methadone 5 mg b.i.d., Imodium p.r.n., Benadryl p.r.n., iron, calcium, Zestril 10 mg daily, Prevacid 30 mg daily, Prozac 10 mg daily, Fioricet p.r.n., Lipitor 40 mg at bedtime, gemfibrozil 600 mg b.i.d., and amlodipine 10 mg daily. PQRS: 1. She denies any history of osteoarthritis or rheumatoid arthritis. 2. Height is 5 feet, weight is 138, BMI is 29. This is down 11 pounds since our last visit. 3. Vital signs 138/77, pulse is 82, respirations 16, oxygen sat is 95. 4. Pain score is 0-2. 5. Denies dizziness, does not need help walking or standing, has not fallen in the last 3 months. 6. The patient is not on any blood thinners, but does take medicine for hypertension. 7. Opioid therapy is greater than 6 weeks; therefore, an opioid signed contract [address] [address] PAIN MANAGEMENT CONSULTATION Name: CONSTANTIN TYLER [facility] #: [facility] [id number] Admission: 09/19/19 Attend Phys: Fang Graham Discharge: Date of : 47 Report #: [id number] is on the chart. Risk assessment tool is low. Functional assessment is 32/70. 8. Recreational drug use, she denies. She is not a smoker and does not drink alcohol. According to the prescription monitoring system, the patient has been filling appropriately for her medication and is due today, actually past due for her fill. We will check a random drug screen on this patient at the next visit. She reports that she does safeguard her medications at all times. PHYSICAL EXAMINATION: GENERAL: This is alert and orientated 73-year-old female who appears her stated age, placing her current pain score from 0-2. She is a good historian. HEENT: Normocephalic, atraumatic. Extraocular eye muscles are intact. She has dental implants permanently in her lower jaw line. Does complain of mild tenderness today. NECK: Without adenopathy or JVD. ABDOMEN: Soft and nontender. She has left flank tenderness at the incisional site of her previous nephrectomy. MUSCULOSKELETAL: The patient walks with a slightly antalgic gait. Her lower extremity strength is deconditioned, though in all lower extremities. IMPRESSION: 1. Chronic left flank pain, status post nephrectomy. 2. Recent dental surgery, lower dental implants. 3. Complex medical management under terms of written opioid agreement. PLAN: 1. We discussed treatment options with the patient today. The patient reports she finally had her dental implants done. She has lost 10 pounds since the last time we saw her. She is doing quite well with pain control and she has been able to decrease her medicines slightly so she did not run out prior to this visit, but still reports a pain score of 0-2. 2. Scripts given today for methadone 5 mg b.i.d., #60 for today and 4-week release. Again, she finds this quite beneficial. I encouraged her to try and take half a tablet twice a day. I believe that she will still have significant pain relief from this lower dose and she has been able to do this the last few days, but she is reluctant worrying that her nephrectomy pain will increase. I will write scripts for the 2 a day, but encouraged her to try to decrease before we see her left to 2.5 mg twice a day. Her current morphine milliequivalent is 40 according to the CDC guidelines. 3. The patient is seen in collaboration with Dr. Rc Villalpando. <ELECTRONICALLY SIGNED> By: Fang Graham 09/20/19 1541 [id number] Fang Graham /nt
== END ==
LOC: PAIN 09-12 07:09
DX: R10.9 Unspecified abdominal pain (principal); Z79.899 Other long term (current) drug therapy; Z88.8 Allergy status to other drugs, medicaments and biological substances; Z79.891 Long term (current) use of opiate analgesic

== ENCOUNTER → 2019-11-23 | Outpatient (CLI) | payer OTHER, BC ==
[~2019-11-23] VITALS: Ht 152.4 cm; Wt 62.9 kg
[2019-11-23 13:28] VITALS: BP 116/66
--- NOTE | 2019-11-23 13:42 | NUR ---
Pain Clinic Assessment: 1. History of Osteoarthritis: DENIES History of Rheumatoid Arthritis: DENIES 2. Height: 5 ft. 0 in. 152.4 cm. Weight: 138.6 lb. oz. 62.868 kg. Patient's BMI: 27.1 3. Vital Signs: BP: 116/66 Pulse: 92 Resp: 16 Temp: 02 Sat: 97 ECG Mon: 4. Pain Intensity: 4 5. Fall Risk: Dizziness: Y Needs help standing or walking: N Fallen in the last 3 months: N Fall risk comments: 6. Patient on Blood Thinner: None 7. History of Hypertension: Y 8. Opioid Therapy greater than 6 weeks: Y Opiate Contract Signed: 05/09/19 9. Risk Assessment Tool Provided: LOW RISK 11/16 10. Functional Assessment Tool: 11. Recreational Drug Use: Never Drug Type: Tobacco Use: Never Smoker Tobacco Type: Amount or Packs/day: How Many Years: Alcohol Use: No Frequency: Quant:
== END ==
LOC: PAIN 06:55
DX: Z76.0 Encounter for issue of repeat prescription (principal); G89.29 Other chronic pain; G43.909 Migraine, unspecified, not intractable, without status migrainosus; G40.909 Epilepsy, unspecified, not intractable, without status epilepticus; M81.0 Age-related osteoporosis without current pathological fracture; I10 Essential (primary) hypertension; J43.9 Emphysema, unspecified; Z88.6 Allergy status to analgesic agent; Z88.1 Allergy status to other antibiotic agents; Z79.899 Other long term (current) drug therapy

== ENCOUNTER → 2020-01-25 | Outpatient (CLI) | payer OTHER, BC ==
[~2020-01-25] VITALS: Ht 152.4 cm; Wt 64.9 kg
[2020-01-25 09:25] VITALS: BP 110/66
--- NOTE | 2020-01-25 09:29 | NUR ---
Pain Clinic Assessment: 1. History of Osteoarthritis: DENIES History of Rheumatoid Arthritis: DENIES 2. Height: 5 ft. 0 in. 152.4 cm. Weight: 143.0 lb. oz. 64.864 kg. Patient's BMI: 27.9 3. Vital Signs: BP: 110/66 Pulse: 74 Resp: 14 Temp: 02 Sat: 96 ECG Mon: 4. Pain Intensity: 3 5. Fall Risk: Dizziness: N Needs help standing or walking: N Fallen in the last 3 months: N Fall risk comments: 6. Patient on Blood Thinner: None 7. History of Hypertension: Y 8. Opioid Therapy greater than 6 weeks: Y Opiate Contract Signed: 05/09/19 9. Risk Assessment Tool Provided: LOW RISK 11/16 10. Functional Assessment Tool: 11. Recreational Drug Use: Never Drug Type: Tobacco Use: Never Smoker Tobacco Type: Amount or Packs/day: How Many Years: Alcohol Use: No Frequency: Quant:
--- NOTE | 2020-02-08 08:21 | HPC ---
[facility] [place] [address] [place] [address] PAIN MANAGEMENT CONSULTATION Name: CONSTANTIN TYLER Room #: REG [facility]#: [id number] Admission: 01/25/20 Attend Phys: Toav Villalpando MD Discharge: Date of : 47 Report #: [id number] THIS REPORT FOR: cc: Edy Degroot MD,Edy Villalpando,Tova Tatum MD ~ CC: Tova Degroot DATE OF SERVICE: 01/25/2020 CHIEF COMPLAINT: Continued left flank pain where the kidney was removed. HISTORY: The patient is a 74-year-old female who has been followed in the pain clinic for quite some time. She continues to have chronic pain in the area of her nephrectomy. This helped with her current medical regimen. Notes that the pain at the left waist band area has worsened. She finds that her medications continued to be helpful. She is still in the process of dental work. She continues to live in a nursing facility. She states that she does not go out much. She pretty much stays in her room at the alf. She rates her pain as a 3 at this point. It can rise to 4-5 on the left waist area. ALLERGIES: DEMEROL. CURRENT MEDICATIONS: Methadone 5 mg b.i.d., Imodium p.r.n., Benadryl, iron, calcium, Zestril 10 mg, Prevacid 30 mg, Prozac 10 mg, Fioricet, Lipitor 40 mg at bedtime, gemfibrozil 600 mg b.i.d., and amlodipine 10 mg. PAIN CLINIC ASSESSMENT AND PQRS: 1. The patient denies history of osteoarthritis and denies rheumatoid arthritis. 2. Height 5 feet 0, weight 143 pounds, BMI is 27.9. 3. Vital signs: Blood pressure 110/66, pulse 74, respiratory rate 14, room air saturation 96%. 4. Pain intensity 3-/10. 5. Fall history: The patient has not fallen in the last 3 months. 6. Blood thinner. The patient is not on a blood thinning medication. 7. Hypertension. The patient is being treated for hypertension. 8. Opioids greater than 6 weeks. 9. Risk assessment tool, low for opioid use. 10. Functional assessment tool . 11. Recreational drug use: The patient denies. 12. Alcohol. The patient denies frequent use of alcoholic beverages. PHYSICAL EXAMINATION: [facility] [address] [place] [address] PAIN MANAGEMENT CONSULTATION Name: CONSTANTIN TYLER Terri Room #: REG [facility]#: [id number] Admission: 01/25/20 Attend Phys: Tova Villalpando MD Discharge: Date of : 47 Report #: [id number] GENERAL: The patient is a well-developed, well-nourished white female. Appears her stated age. She is alert and oriented x 3. Her affect is appropriate. Speech is fluent. HEENT: Normocephalic, atraumatic. Extraocular eye muscles intact. Sclerae nonicteric. Mucous membranes are moist. The patient is still in the process of having dental work completed. Has some pain and discomfort along the implanted area along the jawline. NECK: Without adenopathy or JVD. HEART: Regular rate. ABDOMEN: Nontender. MUSCULOSKELETAL: The patient does have pain and discomfort across the left flank in the area of the nephrectomy. The patient walks with slightly antalgic gait. Uses her hands to go from sitting to a standing position. Notes some deconditioning with muscle strength 4+ in the upper extremities and 5- in the lower extremities. IMPRESSION: 1. Chronic left flank pain, status post nephrectomy. 2. Continue dental surgery, implant and remodeling. 3. Complex medical management using opioid medications to help control pain. RECOMMENDATIONS: We discussed treatment options with the patient. Risks and benefits of an opioid regimen were discussed. Possible complications of the procedure include development of addiction. There is also the possibility of less efficacy as time goes on secondary to development of tolerance. The patient feels that the methadone medications have been helpful. She has had this pain status post nephrectomy for a number of years. She feels overall the things are going reasonably well, has returned today with the desire to undergo renewal of her medication. A script for her medications of methadone 5 mg 1 p.o. b.i.d. has been written. The patient will follow up in about 2 months. We would like to thank you for letting us participate in her care. We hope she continues to improve. <ELECTRONICALLY SIGNED> By: Tova Villalpando MD 02/08/20 0821 [id number] Tova Villalpando MD /pato
== END ==
LOC: PAIN 06:38
DX: R10.9 Unspecified abdominal pain (principal); G89.29 Other chronic pain

== ENCOUNTER → 2020-03-21 | Outpatient (CLI) | payer OTHER, BC ==
--- NOTE | 2020-04-02 22:35 | HPC ---
[facility] [address] [address] PAIN MANAGEMENT CONSULTATION Name: CONSTANTIN TYLER Terri Room #: REG PAUL SultanaSatyaShonaSatya#: [id number] Admission: 03/21/20 Attend Phys: Tova Villalpando MD Discharge: Date of : 47 Report #: [id number] THIS REPORT FOR: cc: Edy Degroot MD, Rene P. MD Brown,Tova Tatum MD ~ CC: Tova Degroot DATE OF SERVICE: 03/21/2020 TELEMEDICINE VISIT CHIEF COMPLAINT: Continued left flank pain. HISTORY: The patient is a 74-year-old female who has been followed in the Pain Clinic. She continues to have pain in the area of her nephrectomy. Since she had the nephrectomy, she has had chronic pain in that side. She has used medications, which have been helpful. She finds that these medications continue to be helpful. She is in a nursing community. She is fearful of coming out because of the COVID pandemic. She would like to have her medications renewed. She states that she is staying in the [facility]. She rates her pain as 7-8/10. She notes some increased pain and discomfort when she is walking for a long time. Bending can be problematic. She did note some discomfort over the last few days after sleeping in a uncomfortable position. Left side is most problematic. She has also had some increased discomfort with constipation. She continues to make the best out of her oral condition. As you may recall, she has had some dentures made with some difficulties with healing over the years. ALLERGIES: DEMEROL. CURRENT MEDICATIONS: Methadone 5 mg b.i.d., Imodium p.r.n., Benadryl, iron, calcium, Zestril 10 mg, Prevacid 30 mg, Prozac 10 mg, Fioricet, Lipitor 40 mg at bedtime, gemfibrozil 600 mg b.i.d., and amlodipine 10 mg. PAIN CLINIC ASSESSMENT AND PQRS: 1. The patient denies history of osteoarthritis or rheumatoid arthritis. 2. Height 5 feet 0 inches. 3. Past weight 143 pounds. Past BMI is 27.9. 4. Pain intensity 7-8/10. 5. Fall history: The patient has not fallen in the last 3 months. 6. Blood thinner. The patient is not on a blood thinning medication. 7. Hypertension. The patient is being treated for hypertension. 8. Opioids greater than 6 weeks. The patient receives medication from [place] [address] PAIN MANAGEMENT CONSULTATION Name: CONSTANTIN TYLER Terri Room #: REG [facility].#: [id number] Admission: 03/21/20 Attend Phys: Tova Villalpando MD Discharge: Date of : 47 Report #: [id number] 9. Risk assessment tool, low for opioid use. 10. Functional assessment tool in the past. 11. Recreational drug use. The patient denies. 12. Alcohol. The patient denies frequent use of alcoholic beverages. REVIEW OF SYSTEMS: Questionnaire: CONSTITUTIONAL: The patient denies any new constitutional symptoms. HEENT: Ears, eyes, nose and throat are stable. The patient still has some soreness associated with the dental implants. CARDIOVASCULAR: Unchanged. RESPIRATORY: Stable. GASTROINTESTINAL: No new changes. GENITOURINARY: No changes. MUSCULOSKELETAL: Unchanged. INTEGUMENTARY: Unchanged. PSYCHIATRIC: The patient is somewhat depressed because of the current COVID-19 pandemic. No new endocrine changes. No new hematological changes. No allergic or immunological changes. IMPRESSION: 1. Chronic left flank pain status post nephrectomy. 2. Continue dental surgery with implants and remodeling. 3. Complex medical management using opioids to help control pain. RECOMMENDATIONS: We discussed treatment options with the patient. At this juncture, we will continue with her medications. We will send her medications to her pharmacy. The patient is in a nursing facility. If she comes out, she must remain isolated for the next 2 weeks. She will have her medications sent to her pharmacy and someone to pick them up. She will call us if she has any concerns. She has found that the use of these medications, status post nephrectomy has been efficacious. She is not having any concerns. She is thinking clearly. We would like to thank you for letting us participate in her care. We will see her in the future. <ELECTRONICALLY SIGNED> By: Tova Villalpando MD 04/02/20 [id number] Tova Villalpando MD /nt
== END ==
LOC: TELEPC 10:20
DX: R10.9 Unspecified abdominal pain (principal); Z90.5 Acquired absence of kidney; Z96.5 Presence of tooth-root and mandibular implants; Z88.8 Allergy status to other drugs, medicaments and biological substances; Z79.899 Other long term (current) drug therapy

== ENCOUNTER → 2020-05-21 | Outpatient (CLI) | payer OTHER, BC ==
[~2020-05-21] VITALS: Ht 152.4 cm; Wt 69.4 kg
[2020-05-21 12:43] VITALS: BP 126/62
--- NOTE | 2020-05-21 12:45 | NUR ---
Pain Clinic Assessment: 1. History of Osteoarthritis: DENIES History of Rheumatoid Arthritis: DENIES 2. Height: 5 ft. 0 in. 152.4 cm. Weight: 153.0 lb. oz. 69.400 kg. Patient's BMI: 29.9 3. Vital Signs: BP: 126/62 Pulse: 84 Resp: 14 Temp: 02 Sat: 95 ECG Mon: 4. Pain Intensity: 5 5. Fall Risk: Dizziness: N Needs help standing or walking: N Fallen in the last 3 months: N Fall risk comments: 6. Patient on Blood Thinner: None 7. History of Hypertension: Y 8. Opioid Therapy greater than 6 weeks: Y Opiate Contract Signed: 05/09/19 9. Risk Assessment Tool Provided: LOW RISK 11/16 10. Functional Assessment Tool: 11. Recreational Drug Use: Never Drug Type: Tobacco Use: Never Smoker Tobacco Type: Amount or Packs/day: How Many Years: Alcohol Use: No Frequency: Quant:
--- NOTE | 2020-05-22 07:49 | HPC ---
[facility] [place] [address] PAIN MANAGEMENT CONSULTATION Name: CONSTANTIN TYLER Terri Room #: REG DEBBYHemal Middleton#: [id number] Admission: 05/21/20 Attend Phys: Fang Graham Discharge: Date of : 49 Report #: [id number] THIS REPORT FOR: cc: Edy Degroot MD, Rene P. MD Hocker, Amanda CNS ~ CC: Jaycee Villalpando MD DATE OF SERVICE: 05/21/2020 CHIEF COMPLAINT: Left flank pain. HISTORY OF PRESENT ILLNESS: This is a 74-year-old female who returns to the pain clinic today for a refill of her medications. She is relieved to get to come to an appointment today. She has been in her prison community for 4 months. She has only gone out recently to the pharmacy, otherwise she has been in her apartment. She states that has been very lonely there and is happy to see people. Today, the patient is complaining of pain score of 5/10 in her left side of her abdomen following her nephrectomy scar. She also has some ongoing pain in her mouth. She has been having dental work done for several years with implants. Those unfortunately were on hold due to the COVID outbreak. The patient states that her pain is worse with eating and bending over. She feels that the methadone is beneficial as well as heat. At times, she would like a slightly higher dose, but understands that she is at her current level and it is most days appropriate for her she reports. She denies problems with constipation or daytime somnolence. ALLERGIES: DEMEROL. CURRENT LIST OF MEDICATIONS: Methadone 5 mg b.i.d., Benadryl, chlorzoxazone, Os-Benitez, Prevacid, Prozac, Fioricet, Lipitor and Norvasc. PQRS: 1. She denies history of osteoarthritis or rheumatoid arthritis. 2. Height is 5 feet, weight is 153, which is an increase of 10 pounds since her last visit in November. Her BMI is 29. Vital signs are 126/62, pulse is 84, respirations 14, oxygen sat is 95%. 3. Pain score is 5/10. Denies dizziness, does not need help walking or standing, has not fallen in the last 3 months. 4. The patient is not on any blood thinners, but does take medicine for hypertension. Her opioid therapy is greater than 6 weeks; therefore, an opioid signed contract is on the chart. Risk assessment is low. Functional assessment is 36/70. 5. Recreational drug use, she denies. She is not a smoker and does not drink alcohol. [address] [address] PAIN MANAGEMENT CONSULTATION Name: CONSTANTIN TYLER Room #: REG PAUL Middleton#: [id number] Admission: 05/21/20 Attend Phys: Fang Graham Discharge: Date of : 49 Report #: [id number] According to the prescription monitoring system, the patient filling appropriately at her [facility]. There is a recent drug screen on the chart that is appropriate as well. PHYSICAL EXAMINATION: GENERAL: This is alert and orientated female who appears her stated age, placing her current pain score at 5/10. She is well-developed, well-nourished. HEENT: Normocephalic, atraumatic. She is wearing a mask. She complains of soreness in her lower jaw related to her dental implants. NECK: Without adenopathy or JVD. MUSCULOSKELETAL: She has an antalgic gait. She has tenderness in her left flank area that radiates to her abdomen following the incisional scar from a previous nephrectomy. IMPRESSION: 1. Chronic left flank pain post nephrectomy. 2. Mouth pain due to ongoing dental surgeries. 3. Complex medical management under terms of written opioid agreement. PLAN: 1. We discussed treatment options with the patient today. The patient finds her medications beneficial most of the time causing no problems of constipation or daytime somnolence. We will continue this medication of methadone 5 mg b.i.d., #60. Dr. Ousmane Villalpando will send electronically 2 months of this medication to her [facility]. 2. I encouraged the patient to call her oral surgeon or dental office to see what the plan is now that things are open for her surgery for her mouth. She has been unable to proceed due to COVID outbreak. The patient verbalized understanding. It is on her list to try and accomplish this week. 3. The patient will return in 2 months or as needed for an appointment. The patient is seen in collaboration today with Dr. Villalpando. <ELECTRONICALLY SIGNED> By: Fang Graham 05/22/20 0749 [id number] 1441 Fang Graham /pato
== END ==
LOC: PAIN 06:53
PROVIDERS: ATTEND Clinical Nurse Specialist Adult Health
DX: G89.29 Other chronic pain (principal); R10.9 Unspecified abdominal pain; Z68.29 Body mass index [BMI] 29.0-29.9, adult; Z90.5 Acquired absence of kidney; Z79.899 Other long term (current) drug therapy

== ENCOUNTER → 2020-07-18 | Outpatient (CLI) | payer OTHER, BC ==
[~2020-07-18] VITALS: Ht 152.4 cm; Wt 71.2 kg
--- NOTE | ~2020-07-18 | HPC ---
[facility] [address] [address] [place] [address] PAIN MANAGEMENT CONSULTATION Name: CONSTANTIN TYLER Room #: REG PAUL Debbie.#: [id number] Admission: 07/18/20 Attend Phys: Tova Villalpando MD Discharge: Date of : 49 Report #: [id number] THIS REPORT FOR: cc: Edy Degroot MD,Edy Villalpando,Tova Tatum MD ~ CC: Tova Degroot DATE OF SERVICE: 07/18/2020 CHIEF COMPLAINT: Here for medication renewal. HISTORY: The patient is a 74-year-old female who has been followed in the pain clinic because of chronic pain. She has pain in the area of her nephrectomy. This has been problematic since the nephrectomy. It involves the side. Notes that her medications are helpful. She has been living in a nursing community. She continues to remain fearful of COVID-19. She rates her pain today as 4-5/10. She also has problems with broken teeth. She has a temporary plate in place. She has developed cataracts and is having surgery in that regard. She has returned today for renewal of her medications. ALLERGIES: DEMEROL. CURRENT MEDICATIONS: Methadone 5 mg b.i.d., Imodium p.r.n., Benadryl, iron, calcium, Zestril 10 mg, Prevacid 30 mg, Prozac 10 mg, Fioricet, Lipitor 40 mg at bedtime, gemfibrozil 600 mg b.i.d., amlodipine 10 mg. PAIN CLINIC ASSESSMENT/PQRS: 1. The patient denies history of osteoarthritis or rheumatoid arthritis. 2. Height 5 feet 0, weight 157 pounds, BMI is 30.7. 3. Vital signs: Blood pressure 146/75, pulse 111, respiratory rate 15, room air saturation 95%. 4. Pain intensity is 4-5/10. 5. Fall history: The patient has not fallen since we saw her last. 6. Blood thinner: The patient is not on a blood thinning medication. 7. Hypertension: The patient is being treated for hypertension. 8. Opioids greater than 6 weeks: The patient receives medication from the pain clinic. 9. Risk assessment tool: Low for opioid use. 10. Functional assessment tool: . 11. Recreational drug use: The patient denies. 12. Tobacco: The patient has never smoked. 13. Alcohol: The patient denies frequent use of alcoholic beverages. PHYSICAL EXAMINATION: [facility] [address] [place] [address] PAIN MANAGEMENT CONSULTATION Name: CONSTANTIN TYLER Terri Room #: REG [facility]#: [id number] Admission: 07/18/20 Attend Phys: Tova Villalpando MD Discharge: Date of : 49 Report #: [id number] GENERAL: The patient is a well-developed, well-nourished white female. Appears her stated age. She is alert and oriented x 3. Her affect is appropriate. Speech is fluent. HEENT: Normocephalic, atraumatic. Extraocular eye muscles intact. The patient has some dental implants. The patient has a facial covering on board. CARDIOVASCULAR: Unchanged. RESPIRATORY: Rate stable with no chest complaints or shortness of breath. ABDOMEN: Nontender. MUSCULOSKELETAL: The patient has some discomfort in the left flank area in the area of the nephrectomy. Walks with slightly antalgic gait. Uses her hands to go from a sitting to a standing position. The patient notes some deconditioning of the muscles in the upper extremity with 5, -5 in the lower extremity muscle strength. IMPRESSION: 1. Chronic left flank pain status post nephrectomy. 2. Dental surgery, implants and remodeling. 3. Complex medical management using opioids to help control pain. 4. COVID-19 pandemic. RECOMMENDATIONS: We discussed treatment options with the patient. At this juncture, we will continue with her medications. A script has been sent to the patient's pharmacy. She will continue with methadone 5 mg 1 p.o. b.i.d. She will also continue with her other medications of chlorzoxazone muscle spasms and Fioricet for migraine headaches. She will call us if she has any concerns. We would like to thank you for letting us participate in her care. She will call us if she elects to stay socially isolated and remained in the nursing facility rather than coming to the Pain Clinic for renewal of her medications in the near future. By: 21 [id number] Tova Villalpando MD /JORDAN
[2020-07-18 08:00] VITALS: BP 146/75
--- NOTE | 2020-07-18 08:02 | NUR ---
Pain Clinic Assessment: 1. History of Osteoarthritis: DENIES History of Rheumatoid Arthritis: DENIES 2. Height: 5 ft. 0 in. 152.4 cm. Weight: 157.0 lb. oz. 71.215 kg. Patient's BMI: 30.7 3. Vital Signs: BP: 146/75 Pulse: 111 Resp: 15 Temp: 02 Sat: 95 ECG Mon: 4. Pain Intensity: 4-5 5. Fall Risk: Dizziness: N Needs help standing or walking: N Fallen in the last 3 months: N Fall risk comments: 6. Patient on Blood Thinner: None 7. History of Hypertension: Y 8. Opioid Therapy greater than 6 weeks: Y Opiate Contract Signed: 05/09/19 9. Risk Assessment Tool Provided: LOW RISK 11/16 10. Functional Assessment Tool: 11. Recreational Drug Use: Never Drug Type: Tobacco Use: Never Smoker Tobacco Type: Amount or Packs/day: How Many Years: Alcohol Use: No Frequency: Quant:
== END | disposition home or self-care (01) ==
LOC: PAIN 06:50
PROVIDERS: ATTEND Anesthesiology Pain Medicine
DX: R10.9 Unspecified abdominal pain (principal); G89.29 Other chronic pain; Z98.890 Other specified postprocedural states; Z79.891 Long term (current) use of opiate analgesic; Z79.899 Other long term (current) drug therapy; Z90.5 Acquired absence of kidney; Z88.8 Allergy status to other drugs, medicaments and biological substances

== ENCOUNTER → 2020-09-12 | Outpatient (CLI) | payer OTHER, BC ==
[~2020-09-12] VITALS: Ht 152.4 cm; Wt 71.9 kg
--- NOTE | ~2020-09-12 | HPC ---
[facility] [place] [address] [place] [address] PAIN MANAGEMENT CONSULTATION Name: CONSTANTIN TYLER Room #: REG PAUL SultanaSatyaShona.#: [id number] Admission: 09/12/20 Attend Phys: Tova Villalpando MD Discharge: Date of : 49 Report #: [id number] THIS REPORT FOR: cc: Edy Degroot MD,Edy Villalpando,Tova Tatum MD ~ CC: Tova Degroot DATE OF SERVICE: 09/12/2020 CHIEF COMPLAINT: Here for medication renewal. HISTORY: The patient is a 75-year-old female, who has been followed in the Pain Clinic because of chronic pain. She does have some problems with her jaw. She continues to have TMJ problems. There is a popping problem on the right side. States that it sometimes pops out. This pain waxes and wanes. Overall, her pain is a 4-5/10. She sometimes is awakened in the morning at 4 o' clock because of the pain. She does live in an independent living situation. There are problems with COVID-19. She stays sheltered in place as much as possible. She has come out today for refill of her medications. Pain has been keeping her awake. She feels that the methadone medication may be more helpful if we increase it a little bit. ALLERGIES: DEMEROL. CURRENT MEDICATIONS: Methadone 5 mg 1 p.o. b.i.d., Imodium p.r.n., Benadryl, iron, calcium, Zestril 10 mg, Prevacid 30 mg, Prozac 10 mg, Fioricet, Lipitor 40 mg at bedtime, gemfibrozil 600 mg b.i.d., and amlodipine 10 mg. PAIN CLINIC ASSESSMENT AND PQRS: 1. The patient denies history of osteoarthritis or rheumatoid arthritis. She does have some TMJ problems. 2. Height 5 feet 0 inch, weight 158 pounds, BMI is 31. 3. Vital signs: Blood pressure 110/67, pulse 75, respiratory rate 16, room air saturation 96%. 4. Pain intensity: 4-5/10. 5. Fall history: The patient has not fallen in the last 3 months. 6. Blood thinner: The patient is not on a blood thinning medication. 7. Hypertension: The patient is being treated for hypertension. 8. Opioids greater than 6 weeks: The patient receives medications from the Pain Clinic. 9. Risk assessment tool: Reviewed. 10. Functional assessment tool: 11. Recreational drug use: The patient denies. 12. Tobacco: The patient has never smoked. [address] [address] PAIN MANAGEMENT CONSULTATION Name: CONSTANTIN TYLER [facility] [id number] Admission: 09/12/20 Attend Phys: Tova Villalpando MD Discharge: Date of : 49 Report #: [id number] 13. Alcohol: The patient denies frequent use of alcoholic beverages. PHYSICAL EXAMINATION: GENERAL: The patient is a well-developed, well-nourished, white female. Appears her stated age. She is alert and oriented x 3. Her affect is appropriate. Speech is fluent. The patient is wearing a facial covering. HEENT: Normocephalic, atraumatic. Extraocular eye muscles are intact. The patient has some dental implants. She has had cataract surgery on the right. She is considering cataract surgery on the left. HEART: Regular rate. LUNGS: Generally clear without shortness of breath. ABDOMEN: Nontender. MUSCULOSKELETAL: Upper extremity muscle strength is judged to be 5-/5 for the major muscle groups in the upper extremity. The patient continues to have pain in the left flank area in the area of nephrectomy. She walks with a slight antalgic gait. She uses her hands to go from a sitting to a standing position before walking. The patient has some deconditioning of her muscles in the upper extremity. Lower extremity muscle strength is 5-/5. IMPRESSION: 1. Chronic left flank pain, status post nephrectomy. 2. Dental surgery with implants and continues to follow up with her dental care. 3. Complex medical management using opioids to help control pain. 4. COVID-19 pandemic. RECOMMENDATIONS: We discussed treatment options with the patient. At this juncture, we will continue with her medications. She feels that these medications are helpful. She is having some increased pain and discomfort as a result of chronic pain. We will continue to make adjustments to her pain medications. The script for her medications has been provided. She will call us if she has any problems. She will also continue with Fioricet for her migraine headaches. She will continue with chlorzoxazone medication for muscle spasms. She will call us if she has any concerns. We would like to thank you for letting us participate in her care. Hopefully, the patient will continue to do well until the time when injections can be provided to the patient. By: [id number] Tova Villalpando MD /nt
[2020-09-12 09:01] VITALS: BP 110/67
--- NOTE | 2020-09-12 09:09 | NUR ---
Pain Clinic Assessment: 1. History of Osteoarthritis: DENIES History of Rheumatoid Arthritis: DENIES 2. Height: 5 ft. 0 in. 152.4 cm. Weight: 158.6 lb. oz. 71.940 kg. Patient's BMI: 31.0 3. Vital Signs: BP: 110/67 Pulse: 75 Resp: 16 Temp: 02 Sat: 96 ECG Mon: 4. Pain Intensity: 4-5 5. Fall Risk: Dizziness: N Needs help standing or walking: N Fallen in the last 3 months: N Fall risk comments: 6. Patient on Blood Thinner: None 7. History of Hypertension: Y 8. Opioid Therapy greater than 6 weeks: Y Opiate Contract Signed: 05/09/19 9. Risk Assessment Tool Provided: LOW RISK 11/16 10. Functional Assessment Tool: 11. Recreational Drug Use: Never Drug Type: Tobacco Use: Never Smoker Tobacco Type: Amount or Packs/day: How Many Years: Alcohol Use: No Frequency: Quant:
== END ==
LOC: PAIN 07:02
PROVIDERS: ATTEND Anesthesiology Pain Medicine
DX: Z76.0 Encounter for issue of repeat prescription (principal); Z79.891 Long term (current) use of opiate analgesic; G89.29 Other chronic pain; R10.9 Unspecified abdominal pain

== ENCOUNTER → 2020-11-05 | Outpatient (CLI) | payer OTHER, BC ==
[~2020-11-05] VITALS: Ht 152.4 cm; Wt 74.4 kg
--- NOTE | ~2020-11-05 | HPC ---
[facility] [place] [address] [place] [address] PAIN MANAGEMENT CONSULTATION Name: CONSTANTIN TYLER Terri Room #: REG [facility] Kane#: [id number] Admission: 11/05/20 Attend Phys: Fang Graham Discharge: Date of : 49 Report #: [id number] THIS REPORT FOR: cc: Edy Degroot MD, Rene P. MD Hocker,Fang Regalado DATE OF SERVICE: 11/05/2020 CHIEF COMPLAINT: Chronic jaw pain and left flank pain. HISTORY OF PRESENT ILLNESS: This is a 75-year-old female who returns to the pain clinic for renewal of her opioid medications. She has been followed up in the pain clinic for quite some time for her chronic ongoing jaw pain that results in TMJ. She has been awaiting oral surgery, but due to the COVID virus, she has been quarantined for several months at her long-term care facility, only allowed to go to doctor's offices and so therefore she has not been able to continue with her oral surgery. This has been an ongoing issue in her mouth for quite some time, though she had finally gotten to the point of surgery when COVID virus came to the [place]. The patient also complains of ongoing left side of her abdomen pain in her nephrectomy. This is intermittent, aching discomfort today, rating her pain from 4-10 depending on the source. Her pain is increased with eating and bending. She believes that there is a slight increase that Dr. Villalpando has allowed her 15 extra pills a month once beneficial in helping reduce some of her discomfort. ALLERGIES: DEMEROL. CURRENT LIST OF MEDICATIONS: Methadone 5 mg 2-3 times a day, Benadryl, chlorzoxazone, calcium, Prevacid, Prozac, Fioricet, Lipitor and Norvasc. PQRS: 1. She denies history of osteoarthritis or rheumatoid arthritis, though does have TMJ issues. 2. Height is 5 feet, weight is 164, BMI is 32. Vital signs 125/66, pulse is 86, respirations 18, oxygen sat is 95%. Pain score is 4-10. 3. Denies dizziness, has not fallen in the last 3 months. 4. The patient is not on blood thinners, but does take medicine for hypertension. 5. Opioid therapy is greater than 6 weeks; therefore, an opioid signed contract is on the chart. Risk assessment is low. Functional assessment is 32/70. 6. Recreational drug use, she denies. She is not a smoker and does not drink alcohol. According to the prescription monitoring system, the patient is due to fill this [address] [address] PAIN MANAGEMENT CONSULTATION Name: CONSTANTIN TYLER Room #: REG [facility] Kane#: [id number] Admission: 11/05/20 Attend Phys: Fang Graham Discharge: Date of : 49 Report #: [id number] weekend. Her morphine mEq is 30 MME's. She does have her medications delivered and I instructed her to call the pharmacy today to see what the delivery schedule is due to the holidays. PHYSICAL EXAMINATION: GENERAL: This is alert and orientated, well-developed, well-nourished, 75-year-old, speech is fluent, rating her pain from 4/10. HEENT: Normocephalic, atraumatic. Extraocular eye muscles are intact. She is having mouth discomfort, wearing a mask and tenderness in her jaws bilaterally. MUSCULOSKELETAL: Upper extremity strength is judged to be 5/5 in her upper and lower extremities, though is slightly deconditioned in her lower extremities. The patient does have pain in her left flank area from previous nephrectomy following the scar that is well approximated. She has a slightly antalgic gait. Pain is increased with standing position. IMPRESSION: 1. Chronic left pain, status post nephrectomy. 2. Dental surgery with implants, continued ongoing mouth pain. 3. Complex medical management utilizing opioid medications. PLAN: 1. We discussed treatment options. The patient found that the methadone is beneficial and is grateful for the few extra pills that Dr. Villalpando has provided her enabling her to take 3 tablets on her more painful days. We will continue 75 tablets per month. Scripts sent for [address] Villalpando. 2. I encouraged the patient to call the pharmacy regarding their schedule throughout the holiday for delivery or instructed the patient that she may need to go and pick them up herself from the pharmacy this one time due to the holiday system. 3. She will continue her Fioricet from her primary care doctor for her migraine headaches. She finds this medication beneficial as well. 4. The patient is seen today in collaboration with Dr. Villalpando. Thank you for allowing us to see her. The patient will return in 2 months. By: [id number] Fang Graham /pato
[2020-11-05 13:39] VITALS: BP 125/66
--- NOTE | 2020-11-05 13:47 | NUR ---
Pain Clinic Assessment: 1. History of Osteoarthritis: DENIES History of Rheumatoid Arthritis: DENIES 2. Height: 5 ft. 0 in. 152.4 cm. Weight: 164.0 lb. oz. 74.390 kg. Patient's BMI: 32.0 3. Vital Signs: BP: 125/66 Pulse: 86 Resp: 18 Temp: 02 Sat: 95 ECG Mon: 4. Pain Intensity: 10 5. Fall Risk: Dizziness: N Needs help standing or walking: N Fallen in the last 3 months: N Fall risk comments: 6. Patient on Blood Thinner: None 7. History of Hypertension: Y 8. Opioid Therapy greater than 6 weeks: Y Opiate Contract Signed: 05/09/19 9. Risk Assessment Tool Provided: LOW RISK 11/16 10. Functional Assessment Tool: 11. Recreational Drug Use: Never Drug Type: Tobacco Use: Never Smoker Tobacco Type: Amount or Packs/day: How Many Years: Alcohol Use: No Frequency: Quant:
== END ==
LOC: PAIN 06:57
PROVIDERS: ATTEND Clinical Nurse Specialist Adult Health
DX: Z76.0 Encounter for issue of repeat prescription (principal); R10.9 Unspecified abdominal pain; R68.84 Jaw pain; G89.29 Other chronic pain; Z79.891 Long term (current) use of opiate analgesic

== ENCOUNTER → 2020-12-31 | Outpatient (CLI) | payer OTHER, BC ==
[~2020-12-31] VITALS: Ht 152.4 cm; Wt 70.4 kg
[~2020-12-31] MED LIST changes: +MELATONIN5 M4 PO
[2020-12-31 10:46] VITALS: BP 126/58
--- NOTE | 2020-12-31 11:19 | NUR ---
Pain Clinic Assessment: 1. History of Osteoarthritis: DENIES History of Rheumatoid Arthritis: DENIES 2. Height: 5 ft. 0 in. 152.4 cm. Weight: 155.2 lb. oz. 70.398 kg. Patient's BMI: 30.3 3. Vital Signs: BP: 126/58 Pulse: 83 Resp: 16 Temp: 02 Sat: 96 ECG Mon: 4. Pain Intensity: 3-4 W/MEDS 7-8 THIS AM 5. Fall Risk: Dizziness: N Needs help standing or walking: N Fallen in the last 3 months: N Fall risk comments: 6. Patient on Blood Thinner: None 7. History of Hypertension: Y 8. Opioid Therapy greater than 6 weeks: Y Opiate Contract Signed: 05/09/19 9. Risk Assessment Tool Provided: LOW RISK 11/16 10. Functional Assessment Tool: 11. Recreational Drug Use: Never Drug Type: Tobacco Use: Never Smoker Tobacco Type: Amount or Packs/day: How Many Years: Alcohol Use: No Frequency: Quant:
== END ==
LOC: PAIN 07:07
PROVIDERS: ATTEND Anesthesiology Pain Medicine
DX: R10.9 Unspecified abdominal pain (principal); F11.20 Opioid dependence, uncomplicated; G89.29 Other chronic pain; Z98.818 Other dental procedure status; Z88.8 Allergy status to other drugs, medicaments and biological substances; Z79.899 Other long term (current) drug therapy

== ENCOUNTER → 2021-02-25 | Outpatient (CLI) | payer OTHER, BC ==
[~2021-02-25] VITALS: Ht 152.4 cm; Wt 63.1 kg
[~2021-02-25] MED LIST changes: +LOPERAMIDE 2 MG2 M1 PO; +PROBIOTIC1 EAC7 PO
[2021-02-25 10:10] VITALS: BP 126/74
--- NOTE | 2021-02-25 10:34 | NUR ---
Pain Clinic Assessment: 1. History of Osteoarthritis: DENIES History of Rheumatoid Arthritis: DENIES 2. Height: 5 ft. 0 in. 152.4 cm. Weight: 139.2 lb. oz. 63.141 kg. Patient's BMI: 27.2 3. Vital Signs: BP: 126/74 Pulse: 87 Resp: 16 Temp: 02 Sat: 96 ECG Mon: 4. Pain Intensity: 4 W/MEDS 9-10 WORSE 5. Fall Risk: Dizziness: N Needs help standing or walking: N Fallen in the last 3 months: N Fall risk comments: 6. Patient on Blood Thinner: None 7. History of Hypertension: Y 8. Opioid Therapy greater than 6 weeks: Y Opiate Contract Signed: 05/09/19 9. Risk Assessment Tool Provided: LOW RISK 11/16 10. Functional Assessment Tool: 11. Recreational Drug Use: Never Drug Type: Tobacco Use: Never Smoker Tobacco Type: Amount or Packs/day: How Many Years: Alcohol Use: No Frequency: Quant:
== END ==
LOC: PAIN 09:27
PROVIDERS: ATTEND Anesthesiology Pain Medicine
DX: Z76.0 Encounter for issue of repeat prescription (principal); G89.29 Other chronic pain; F11.20 Opioid dependence, uncomplicated; Z88.8 Allergy status to other drugs, medicaments and biological substances; Z79.899 Other long term (current) drug therapy

== ENCOUNTER → 2021-04-17 | Outpatient (CLI) | payer OTHER, BC ==
[~2021-04-17] VITALS: Ht 154.9 cm; Wt 61.2 kg
[~2021-04-17] MED LIST changes: -DIPHENHIST50 MG PO; +GEMFIBROZIL 60600 M1 PO; -PROZAC 10 MG CA10 MG PO; +PROZAC20 MG PO
--- NOTE | 2021-04-20 15:04 | P ---
[facility] [place] [place] [address] PROCEDURE REPORT Name: CONSTANTIN TYLER [id number] Admission: 04/17/21 Attend Phys: Luis Peña Discharge: Date of : 49 Report #: [id number] THIS REPORT FOR: cc: Edy Degroot MD, Rene P. MD McElhinney, Christian C. MD ~ DOC #: [id number] cc: MD Luis Kumar MD DATE OF SERVICE: 04/17/2021 PROCEDURE PERFORMED: Colonoscopy with biopsies. HISTORY OF PRESENT ILLNESS: The patient is a 75-year-old female with a history of intermittent diarrhea, which has become progressively worse. She denies any obvious blood in her stools in the office recently; however, had a black stool within the last few days. She has had upper endoscopies in the past for peptic ulcer disease, but is on PPI therapy. Last colonoscopy was in 2011 and was normal. No family history of colon cancer. DESCRIPTION OF PROCEDURE: The risks and benefits of the procedure were explained to the patient, those risks including but not limited to bleeding, perforation and the risk of sedation. She understood these risks and gave informed consent. Sedation was given using propofol per anesthesia. Next, a digital rectal exam was initially performed, which was normal. Next, using a standard Olympus colonoscope, the scope was placed in the patient's anus and advanced under direct vision to the cecum. The overall prep was excellent. The cecum and ileocecal valve are normal in appearance. Ascending, transverse, descending and sigmoid colon were all normal. The rectal mucosa was normal. Random biopsies were obtained today to rule out the possibility of microscopic colitis. The scope was withdrawn and the procedure terminated. The patient tolerated the procedure well. IMPRESSION: Normal colonoscopy. RECOMMENDATIONS: 1. Await biopsies. 2. We will make further recommendations after biopsy results. Thank you for allowing me to participate in her care. Luis Arteaga MD [facility]/[address] [address] PROCEDURE REPORT Name: CONSTANTIN TYLER Room #: REG [facility] Kane#: [id number] Admission: 04/17/21 Attend Phys: Luis Peañ Discharge: Date of : 49 Report #: [id number] <ELECTRONICALLY SIGNED> By: Luis Arteaga MD 04/20/21 1504 1005 [id number] Luis Arteaga MD /nt
--- NOTE | 2021-04-20 18:06 | PATH ---
[facility] [address] [place] [address] PATHOLOGY RPT PROCEDURE Name: ELIDIA MESSINA Room #: REG [facility] Debbie.#: [id number] Admission: 04/17/21 Date of : 49 Discharge: Report #: [id number] Path Case #: [id number] [facility] Accession Number: [id number] . 01 Material submitted: . colon - RANDOM BX R/O MICROSCOPIN COLITIS . 01 Clinical history: . COLONOSCOPY DIARRHEA . 02 Diagnosis: Large intestine mucosa, random to rule out microscopic colitis, endoscopic biopsy: - Mild active colitis, see comment. - Negative for dysplasia or malignancy. 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 (IUV:shane; 04/20/2021) [facility] 04/20/2021 1417 Local . 02 Comment: Sections of the colonic mucosa designated "random colon" show focal cryptitis, and a moderately cellular lamina propria composed predominantly of lymphocytes and plasma cells and occasional eosinophils. Surface ulceration is not identified. There are no crypt abscesses, granulomas or viral inclusions. The process affects all the fragments with a similar intensity. Given the description, the differential diagnosis includes focal self-limited episode of colitis, infectious-type of colitis, medication/drug induced colitis (including herbal medications), acute diverticulitis, as well as early inflammatory bowel disease. Please correlate with clinical as well as endoscopic findings. (IUV:transportation worker; 04/20/2021) . 02 Electronically signed: . Mraia Luisa Khan MD, Pathologist NPI- [id number] . 01 Gross description: . Received in formalin labeled "Elidia Messina, random BX rule out microscopic colitis" are multiple booker-brown soft tissue fragments measuring in aggregate 1.4 x 0.6 x 0.1 cm. The specimen is submitted entirely in A1. ([facility] [place]; 04/19/2021) [facility] 04/19/2021 1036 Local . 02 Pathologist provided ICD-10: K52.[address] [address] PATHOLOGY RPT PROCEDURE Name: ELIDIA MESSINA Room #: REG CLHemal Middleton#: [id number] Admission: 04/17/21 Date of : 49 Discharge: Report #: [id number] Path Case #: [id number] . 02 CPT . 696762 Specimen Comment: A courtesy copy of this report has been sent to [phone], [phone] Specimen Comment: [id number] Specimen Comment: Report sent to / DR STEVENSON Performed at: [address], [place] [id number] MD Pranay Andrade MD Phone: [phone] Performed at: [address] [id number] MD Maria Luisa Khan MD Phone: [phone]
== END | disposition home or self-care (01) ==
LOC: GI 09:11
PROVIDERS: ATTEND Specialist
DX: K52.9 Noninfective gastroenteritis and colitis, unspecified (principal); I10 Essential (primary) hypertension; E78.00 Pure hypercholesterolemia, unspecified; F32.9 Major depressive disorder, single episode, unspecified; F41.9 Anxiety disorder, unspecified; K21.9 Gastro-esophageal reflux disease without esophagitis; G47.00 Insomnia, unspecified; Z98.890 Other specified postprocedural states; Z79.899 Other long term (current) drug therapy; Z90.710 Acquired absence of both cervix and uterus; Z85.3 Personal history of malignant neoplasm of breast; Z85.528 Personal history of other malignant neoplasm of kidney; Z85.22 Personal history of malignant neoplasm of nasal cavities, middle ear, and accessory sinuses; Z98.41 Cataract extraction status, right eye; Z90.5 Acquired absence of kidney
CPT/HCPCS: 62110; 62900

== ENCOUNTER → 2021-05-01 | Outpatient (CLI) | payer OTHER, BC ==
[~2021-05-01] VITALS: Ht 152.4 cm; Wt 57.9 kg
[2021-05-01 09:27] VITALS: BP 113/67
--- NOTE | 2021-05-01 09:37 | NUR ---
Pain Clinic Assessment: 1. History of Osteoarthritis: DENIES History of Rheumatoid Arthritis: DENIES 2. Height: 5 ft. 0 in. 152.4 cm. Weight: 127.6 lb. oz. 57.879 kg. Patient's BMI: 24.9 3. Vital Signs: BP: 113/67 Pulse: 100 Resp: 16 Temp: 02 Sat: 97 ECG Mon: 4. Pain Intensity: 1-2 NOW 5. Fall Risk: Dizziness: N Needs help standing or walking: N Fallen in the last 3 months: N Fall risk comments: 6. Patient on Blood Thinner: None 7. History of Hypertension: Y 8. Opioid Therapy greater than 6 weeks: Y Opiate Contract Signed: 05/09/19 9. Risk Assessment Tool Provided: LOW RISK 11/16 10. Functional Assessment Tool: 11. Recreational Drug Use: Never Drug Type: Tobacco Use: Never Smoker Tobacco Type: Amount or Packs/day: How Many Years: Alcohol Use: No Frequency: Quant:
== END ==
LOC: PAIN 07:01
PROVIDERS: ATTEND Clinical Nurse Specialist Adult Health
DX: R10.9 Unspecified abdominal pain (principal); G89.29 Other chronic pain; I10 Essential (primary) hypertension; Z79.891 Long term (current) use of opiate analgesic; Z79.899 Other long term (current) drug therapy; Z88.6 Allergy status to analgesic agent; Z88.1 Allergy status to other antibiotic agents

== ENCOUNTER → 2021-07-01 | Outpatient (CLI) | payer OTHER, BC ==
[~2021-07-01] VITALS: Ht 152.4 cm; Wt 55.2 kg
[~2021-07-01] MED LIST changes: +HYOSCYAMINE0.125 MG PO
[2021-07-01 11:23] VITALS: BP 121/63
--- NOTE | 2021-07-01 11:25 | NUR ---
Pain Clinic Assessment: 1. History of Osteoarthritis: DENIES History of Rheumatoid Arthritis: DENIES 2. Height: 5 ft. 0 in. 152.4 cm. Weight: 121.8 lb. oz. 55.248 kg. Patient's BMI: 23.8 3. Vital Signs: BP: 121/63 Pulse: 85 Resp: 14 Temp: 02 Sat: 97 ECG Mon: 4. Pain Intensity: 5 5. Fall Risk: Dizziness: N Needs help standing or walking: N Fallen in the last 3 months: N Fall risk comments: 6. Patient on Blood Thinner: None 7. History of Hypertension: Y 8. Opioid Therapy greater than 6 weeks: Y Opiate Contract Signed: 05/09/19 9. Risk Assessment Tool Provided: LOW RISK 11/16 10. Functional Assessment Tool: 11. Recreational Drug Use: Never Drug Type: Tobacco Use: Never Smoker Tobacco Type: Amount or Packs/day: How Many Years: Alcohol Use: No Frequency: Quant:
== END ==
LOC: PAIN 11:07
PROVIDERS: ATTEND Anesthesiology Pain Medicine
DX: R10.9 Unspecified abdominal pain (principal); G89.29 Other chronic pain; Z79.899 Other long term (current) drug therapy; Z79.891 Long term (current) use of opiate analgesic; Z86.16 Personal history of COVID-19

== ENCOUNTER → 2021-08-26 | Outpatient (CLI) | payer OTHER, BC ==
[~2021-08-26] VITALS: Ht 152.4 cm; Wt 51.7 kg
[2021-08-26 10:29] VITALS: BP 102/50
--- NOTE | 2021-08-26 10:33 | NUR ---
Pain Clinic Assessment: 1. History of Osteoarthritis: DENIES History of Rheumatoid Arthritis: DENIES 2. Height: 5 ft. 0 in. 152.4 cm. Weight: 114.0 lb. oz. 51.710 kg. Patient's BMI: 22.3 3. Vital Signs: BP: 102/50 Pulse: 82 Resp: 16 Temp: 02 Sat: 95 ECG Mon: 4. Pain Intensity: 4 5. Fall Risk: Dizziness: N Needs help standing or walking: N Fallen in the last 3 months: Y Fall risk comments: 6. Patient on Blood Thinner: None 7. History of Hypertension: Y 8. Opioid Therapy greater than 6 weeks: Y Opiate Contract Signed: 05/09/19 9. Risk Assessment Tool Provided: LOW RISK 1 10. Functional Assessment Tool: 11. Recreational Drug Use: Never Drug Type: Tobacco Use: Never Smoker Tobacco Type: Amount or Packs/day: How Many Years: Alcohol Use: No Frequency: Quant:
== END ==
LOC: PAIN 07:00
PROVIDERS: ATTEND Clinical Nurse Specialist Adult Health
DX: G89.29 Other chronic pain (principal); R10.32 Left lower quadrant pain; M54.50 Low back pain, unspecified; H91.8X3 Other specified hearing loss, bilateral; Z79.899 Other long term (current) drug therapy; Z88.1 Allergy status to other antibiotic agents; Z88.8 Allergy status to other drugs, medicaments and biological substances

== ENCOUNTER → 2021-10-21 | Outpatient (CLI) | payer OTHER, BC ==
[~2021-10-21] VITALS: Ht 152.4 cm; Wt 50.9 kg
[2021-10-21 10:13] VITALS: BP 117/55
--- NOTE | 2021-10-21 10:22 | NUR ---
Pain Clinic Assessment: 1. History of Osteoarthritis: DENIES History of Rheumatoid Arthritis: DENIES 2. Height: 5 ft. 0 in. 152.4 cm. Weight: 112.2 lb. oz. 50.893 kg. Patient's BMI: 21.9 3. Vital Signs: BP: 117/55 Pulse: 87 Resp: 14 Temp: 02 Sat: 99 ECG Mon: 4. Pain Intensity: 7-8 5. Fall Risk: Dizziness: N Needs help standing or walking: N Fallen in the last 3 months: N Fall risk comments: 6. Patient on Blood Thinner: None 7. History of Hypertension: Y 8. Opioid Therapy greater than 6 weeks: Y Opiate Contract Signed: 05/09/19 9. Risk Assessment Tool Provided: LOW RISK 1 10. Functional Assessment Tool: 11. Recreational Drug Use: Never Drug Type: Tobacco Use: Never Smoker Tobacco Type: Amount or Packs/day: How Many Years: Alcohol Use: No Frequency: Quant:
== END ==
LOC: PAIN 07:02
PROVIDERS: ATTEND Clinical Nurse Specialist Adult Health
DX: G89.29 Other chronic pain (principal); M54.50 Low back pain, unspecified; R10.32 Left lower quadrant pain; H91.8X3 Other specified hearing loss, bilateral; Z90.5 Acquired absence of kidney; Z88.8 Allergy status to other drugs, medicaments and biological substances; Z79.899 Other long term (current) drug therapy

== ENCOUNTER → 2021-12-23 | Outpatient (CLI) | payer OTHER, BC ==
[~2021-12-23] VITALS: Ht 154.9 cm; Wt 49.4 kg
[~2021-12-23] MED LIST changes: +AZO BLADDER CO300 MG PO
[2021-12-23 10:39] VITALS: BP 126/59
--- NOTE | 2021-12-23 10:46 | NUR ---
Pain Clinic Assessment: 1. History of Osteoarthritis: DENIES History of Rheumatoid Arthritis: DENIES 2. Height: 5 ft. 1 in. 154.9 cm. Weight: 109.0 lb. oz. 49.442 kg. Patient's BMI: 20.6 3. Vital Signs: BP: 126/59 Pulse: 92 Resp: 16 Temp: 02 Sat: 96 ECG Mon: 4. Pain Intensity: 6 5. Fall Risk: Dizziness: N Needs help standing or walking: N Fallen in the last 3 months: N Fall risk comments: 6. Patient on Blood Thinner: None 7. History of Hypertension: Y 8. Opioid Therapy greater than 6 weeks: Y Opiate Contract Signed: 05/09/19 9. Risk Assessment Tool Provided: LOW RISK 1 10. Functional Assessment Tool: 11. Recreational Drug Use: Never Drug Type: Tobacco Use: Never Smoker Tobacco Type: Amount or Packs/day: How Many Years: Alcohol Use: No Frequency: Quant:
== END ==
LOC: PAIN 10:04
PROVIDERS: ATTEND Clinical Nurse Specialist Adult Health
DX: G89.29 Other chronic pain (principal); R10.32 Left lower quadrant pain; R68.84 Jaw pain; H91.93 Unspecified hearing loss, bilateral; Z79.899 Other long term (current) drug therapy; Z88.8 Allergy status to other drugs, medicaments and biological substances